=== PATIENT | female | born 1940 | race Caucasian/White ===

== ENCOUNTER 2021-06-03 20:56 | Inpatient (IN) | payer OTHER, MEDICAID, SELFPAY ==
[~2021-06-03] VITALS: Ht 157.5 cm; Wt 63.5 kg
[~2021-06-03 20:56] MED LIST: ACET-2619 GT; ATI.5 GT; BALS30OI TP; BISA-227 PO; BISA-246 RC; CHOL2400; CHOL2400 GT; COG1 GT; DEXT15LI36 PO; DIVA125E1 GT; FAMO-90 GT; FENO145T GT; FLEPED RC; FLONAS NS; FLOR250 GT; GABA300C GT; INSU100I7 SQ; INSU100S45 SUBQ; LEVO25SO GT; LISI-486 GT; MAGN400S60 GT; NYST1CRE8 TP; ONDA4TAB GT; PRON INH; ROB PO; [UNRECOGNIZED DRUG - CODE] GT
[2021-06-03 20:59] VITALS: BP 126/88
--- NOTE | 2021-06-03 20:59 | NUR ---
VIKKI VIA GURNEY TO BED 3
--- NOTE | 2021-06-03 20:59 | NUR ---
VIKKI FROM [facility] IN [place] VIA [place], PER EMS FACILITY DOCTOR WANTS A RECHECK ON SACRAL WOUND DUE TO SUSPECTED INFECTION. PT. GCS 8. VSS; PATIENT POSITIONED FOR COMFORT; HOB ELEVATED; BEDRAILS UP X2; BED DOWN. ER MD MADE AWARE OF PT STATUS. MED HX: ANEMIA, DEPRESSION, DYSPHAGIA, HTN, DM ALLERGIES: NKA
[2021-06-03] MEDS ORDERED: VANCOMYCIN 1,000 MG in DEXTROSE 5% 250 ML IV ONE (21:35)
--- NOTE | 2021-06-03 21:45 | NUR ---
COCO [place] SWAB COMPLETED AND HANDED TO EDUARDO FROM LAB
[2021-06-03] MEDS ORDERED: VANCOMYCIN 1,000 MG VIAL ONE (21:46)
--- NOTE | 2021-06-03 22:27 | NUR ---
LAB AT BEDSIDE
[2021-06-03] MEDS ORDERED: ASCO500T95 PO (22:38)
[2021-06-03] MEDS ORDERED: ZINC50TA76 PO (22:38)
[2021-06-03] MEDS ORDERED: CLON0.1T16 PO (22:38)
[2021-06-03] MEDS ORDERED: METO25TA PO (22:38)
[2021-06-03 22:46] LABS: BASOPHILS # (AUTO) 0.1 K/uL (0.00-0.22); BASOPHILS % (AUTO) 0.4 % (0.0-2.0); EOSINOPHILS # (AUTO) 0.1 K/uL (0-0.4); EOSINOPHILS % (AUTO) 0.6 % (0.0-4.0); HEMOGLOBIN 10.8 g/dL (12.0-16.0); LYMPHOCYTES # (AUTO) 2.4 K/uL (2.5-16.5); LYMPHOCYTES % (AUTO) 16.7 % (20.5-51.1); MEAN CORPUSCULAR HEMOGLOBIN 27 pg (27-31); MEAN CORPUSCULAR HGB CONC 33 g/dL (33-37); MEAN CORPUSCULAR VOLUME 82.1 fL (80-94); MONOCYTES # (AUTO) 1.8 K/uL (0.8-1.0); MONOCYTES % (AUTO) 12.1 % (1.7-9.3); NEUTROPHILS # (AUTO) 10.3 K/uL (1.8-7.7); NEUTROPHILS % (AUTO) 70.2 % (42.2-75.2); PLATELET COUNT (AUTO) 378 K/uL (140-450); RED BLOOD CELL COUNT(AUTO) 4.02 MIL/uL (4.20-5.40); RED CELL DISTRIBUTION WIDTH 14.6 % (11.6-13.7); WHITE BLOOD COUNT (AUTO) 14.6 K/uL (4.8-10.8)
[2021-06-03] MEDS ORDERED: SODIUM PHOSPHATE PEDIATRIC 67.5 ML ENEM RC PRN (23:10)
[2021-06-03] MEDS ORDERED: bisacodyL 5 MG TABEC PO PRN (23:10)
[2021-06-03] MEDS ORDERED: ACETAMINOPHEN 325 MG TAB GT PRN (23:10)
[2021-06-03] MEDS ORDERED: bisacodyL 10 MG SUPP RC PRN (23:10)
[2021-06-03] MEDS ORDERED: MAGNESIUM HYDROXIDE 2400 MG/30 ML UDC GT PRN (23:10)
[2021-06-03] MEDS ORDERED: LORazepam 0.5 MG TAB GT PRN (23:10)
[2021-06-03] MEDS ORDERED: ALBUTEROL 0.083% 2.5 MG/3 ML NEBU INH PRN (23:10)
[2021-06-03] MEDS ORDERED: ONDANSETRON 4 MG TAB GT SCH (23:10)
[2021-06-03] MEDS ORDERED: guaiFENesin 20 MG/ML UDC GT PRN (23:10)
[2021-06-03 23:12] LABS: ALBUMIN 2.5 g/dL (3.4-5.0); ANION GAP 9.8 (8-16); ASPARTATE AMINOTRANSFERASE 10 U/L (15-37); CARBON DIOXIDE 28.8 mmol/L (21-32); CHLORIDE 88 mmol/L (98-107); CREATININE 1.1 mg/dL (0.6-1.3); POTASSIUM 4.6 mmol/L (3.5-5.1); SODIUM SERUM 122 mmol/L (136-145); TOTAL BILIRUBIN 0.2 mg/dL (0.0-1.0)
[2021-06-03] MEDS ORDERED: ONDANSETRON 4 MG/2 ML VIAL IVP PRN (23:20)
[2021-06-03] MEDS: DEXT 5% /NACL 0.9% 1,000 ML IV SCH (23:20)
[2021-06-03 23:43] LABS: GLUCOSE 363 mg/dL (74-106); UREA NITROGEN, BLOOD 61 mg/dL (7-18)
--- NOTE | 2021-06-03 23:52 | NUR ---
Patient will be admitted to care of DR. GODOY. Admitted to MED SURG. PT. TAKEN TO room 110B VIA GURKIZZY, ACCOMPANIED BY EMT PAULINA. Belongings list completed.
--- NOTE | 2021-06-03 23:55 | NUR ---
RECEIVED PATIENT IN GURNEY, FLAT AFFECT, NONVERBAL, NO S/S OF DISTRESS.
--- NOTE | 2021-06-04 01:00 | NUR ---
PATIENT WAS ASLEEP
--- NOTE | 2021-06-04 02:00 | NUR ---
PATIENT WAS ASLEEP PATIENT WAS TURNED TO RIGHT SIDE.
[2021-06-04 04:00] VITALS: BP 140/79
--- NOTE | 2021-06-04 04:00 | NUR ---
PATIENT WAS ASLEEP, TURNED TO LEFT SIDE Addendum: 06/04/21 at 0724 by Chris Garrison RN RN 0 IV [id number] NS AT 100 ML/HOUR WAS STARTED INFUSING WELL, TOLERATED BY THE PATIENT
[2021-06-04] MEDS: CLONIDINE HYDROCHLORIDE 0.1 MG TAB PO SCH ×6 (05:00→18:21)
--- NOTE | 2021-06-04 05:00 | NUR ---
CLONIDINE 0.5 MG WAS GIVEN BY PEG TUBE. ANCEF IVPB 1 GRAM WAS ADMINISTERED TOLERATED WELL.
[2021-06-04 05:22] LABS: BASOPHILS # (AUTO) 0.1 K/uL (0.00-0.22); BASOPHILS % (AUTO) 0.6 % (0.0-2.0); EOSINOPHILS # (AUTO) 0.1 K/uL (0-0.4); EOSINOPHILS % (AUTO) 0.9 % (0.0-4.0); HEMATOCRIT 35.2 % (36-48); HEMOGLOBIN 11.8 g/dL (12.0-16.0); LYMPHOCYTES # (AUTO) 3.2 K/uL (2.5-16.5); LYMPHOCYTES % (AUTO) 23.7 % (20.5-51.1); MEAN CORPUSCULAR HEMOGLOBIN 27 pg (27-31); MEAN CORPUSCULAR HGB CONC 33 g/dL (33-37); MEAN CORPUSCULAR VOLUME 81.7 fL (80-94); MONOCYTES # (AUTO) 1.7 K/uL (0.8-1.0); MONOCYTES % (AUTO) 12.8 % (1.7-9.3); NEUTROPHILS # (AUTO) 8.4 K/uL (1.8-7.7); PLATELET COUNT (AUTO) 385 K/uL (140-450); RED BLOOD CELL COUNT(AUTO) 4.31 MIL/uL (4.20-5.40); RED CELL DISTRIBUTION WIDTH 14.5 % (11.6-13.7); WHITE BLOOD COUNT (AUTO) 13.6 K/uL (4.8-10.8)
--- NOTE | 2021-06-04 06:00 | NUR ---
PATIENT HAD 1 BM, CLEANED AND CHANGED LINENS AND CHALK
[2021-06-04 06:04] LABS: ANION GAP 12.6 (8-16); CARBON DIOXIDE 28.8 mmol/L (21-32); CHLORIDE 88 mmol/L (98-107); GLUCOSE 279 mg/dL (74-106); MAGNESIUM 2.1 mg/dL (1.8-2.4); PHOSPHORUS 3.4 mg/dL (2.5-4.9); POTASSIUM 4.4 mmol/L (3.5-5.1); SODIUM SERUM 125 mmol/L (136-145); UREA NITROGEN, BLOOD 56 mg/dL (7-18)
[2021-06-04] MEDS ORDERED: ceFAZolin 1,000 MG VIAL ONE (06:11)
[2021-06-04] MEDS ORDERED: INSULIN GLARGINE HUM REC ANLOG 12 UNIT SQ SCH (07:00)
[2021-06-04] MEDS ORDERED: ACETAMINOPHEN 650 MG/20.3 ML UDC GT PRN (07:10)
[2021-06-04] MEDS ORDERED: SODIUM PHOSPHATE 118 ML ENEM RC PRN (07:15)
--- NOTE | 2021-06-04 07:25 | NUR ---
REPORTS WERE GIVEN, PROCESS PLAN ENDORSED TO IN COMING RN PER KRISTINA NURSE CARDIOPULMONARY TECHNICIAN AND EEG TECH. OVERTIME NOT ALLOWED.
--- NOTE | 2021-06-04 08:57 | NUR ---
PATIENT HAS BEEN SCREENED AND CATEGORIZED HIGH NUTRITION RISK. PATIENT WILL BE SEEN WITHIN 1-2 DAYS OF ADMISSION. 06/04/21-06/05/21 [facility]NS CONSULT RECEIVED FOR TUBE FEEDING AND FNS REFERRAL RECEIVED FOR TUBE FEEDING, DYSPHAGIA AND UNHEALED WOUND. LINETTE BRANCH RD
[2021-06-04 09:00] VITALS: BP 157/80
[2021-06-04] MEDS ORDERED: NON-FORMULARY ITEM (Cholecalciferol (Vitamin D3) (Vitamin D3) 5,000 U) SCH (09:00)
[2021-06-04] MEDS ORDERED: NON-FORMULARY ITEM (Saccharomyces Boulardii* (Florastor*) 250 MG) GT SCH (09:00)
[2021-06-04] MEDS ORDERED: ZINC 220 MG PO SCH (09:00)
[2021-06-04] MEDS ORDERED: LEVOFLOXACIN GT SCH (09:00)
[2021-06-04] MEDS ORDERED: ASCORBIC ACID 500 MG TAB PO SCH (09:00)
--- NOTE | 2021-06-04 09:00 | NUR ---
RECEIVED REPORT FROM LAILA RN. 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 AWAITING DIETARY CONSULT FOR GT FEEDING RECOMMENDATIONS. VSS. NO DISTRESS NOTED UPON ASSESSMENT. WILL MONITOR PER PROTOCOL.
[2021-06-04] MEDS: DEXT 5% /NACL 0.9% 1,000 ML IV SCH ×2 (09:20→20:26)
[2021-06-04] MEDS: ZINC SULF 220 MG CAP GT SCH (11:30)
[2021-06-04] MEDS: FENOFIBRATE 48 MG TAB GT SCH (11:31)
[2021-06-04] MEDS: DIVALPROEX SPRINKLES 125 MG CAPDR GT SCH ×2 (11:31→21:22)
[2021-06-04] MEDS: lisinopriL 10 MG TAB GT SCH (11:32)
[2021-06-04] MEDS: GABAPENTIN 300 MG CAP GT SCH ×3 (11:32→18:20)
[2021-06-04] MEDS: METOPROLOL 25 MG TAB PO SCH ×2 (11:32→21:00)
[2021-06-04] MEDS: LACTOBACILLUS RHAMNOSUS GG 1 EACH CAP GT SCH (11:32)
[2021-06-04] MEDS: FAMOTIDINE 20 MG TAB GT SCH (11:33)
[2021-06-04] MEDS: CHOLECALCIFEROL 1,000 IU TAB GT SCH (11:33)
[2021-06-04] MEDS: NYSTATIN/TRIAMCINOLONE CRM 15 GM TUBE TP SCH ×2 (13:02→21:31)
[2021-06-04] MEDS: BENZTROPINE 1 MG TAB GT SCH (13:03)
--- NOTE | 2021-06-04 13:04 | NUR ---
DR. GODOY APPROVED RECOMMENDATIONS FOR FNS CONSULT TUBE FEEDING: GLUCERNA 1.2 @ 60 ML/HR. VITAMIN C 500 MG BID AND MULTIVITAMIN ONCE DAILY.
--- NOTE | 2021-06-04 14:04 | NUR ---
DC PLANNIN YRS OLD FEMALE PATIENT WAS ADMITTED FROM [facility] WITH A DX OF DECUBITUS ULCER STAGE 3 . PT HAS A HX OF CEREBRAL PALSY, DYSPHAGIA, HLD ANEMIA HTN, ARTHRITIS QUADRIPLEGIA AND HEARING LOSS. . RAPID COVID TEST NEGATIVE STARTED ON IVF, IV ABX ANCEF AND CONTINUED HOME MEDS. CONSULTED WITH ID AND SURGEON DR CHOUDHURY . DC PLAN TO GO BACK TO [facility] WHEN STABLE CM TO FOLLOW. Addendum: 06/04/21 at 1412 by Mallory Auguste RN DC PLANNING: CALLED [facility] SCAFFOLD SETTER [phone] SPOKE WITH LISETTE OLIVER STATED [facility] IS THE CONSERVATOR FOR THE PATIENT AND CAN GIVE WRITTEN CONSENT. IF PATIENT HAS TO GO TO [facility], YUNIER TONEY AND RONDA GUEVARA IS THE CHOICE. CM TO FOLLOW
--- NOTE | 2021-06-04 14:29 | NUR ---
06/04/21 RD INITIAL ASSESSMENT COMPLETED PLEASE REFER TO NUTRITION ASSESSMENT UNDER CARE ACTIVITY FOR ESTIMATED NUTRITIONAL NEEDS. 1. RECOMMEND GLUCERNA 1.2 @ 60 ML/HR -PROVIDES 1728 KCAL AND 86 GM OF PROTEIN. 2. RECOMMEND VITAMIN C 500 MG BID AND MULTIVITAMIN ONCE DAILY 3. RECOMMEND FREE WATER FLUSH OF [address] TO FOLLOW-UP 2-3 DAYS, HIGH RISK LINETTE BRANCH RD
[2021-06-04 17:00] VITALS: BP 131/57
[2021-06-04] MEDS ORDERED: VANCOMYCIN PER PHARMACY MC PRN (17:35)
[2021-06-04] MEDS ORDERED: ACETAMINOPHEN 325 MG TAB GT PRN (18:20)
[2021-06-04] MEDS ORDERED: LORazepam 2 MG/ML VIAL IVP PRN (18:20)
[2021-06-04] MEDS ORDERED: ONDANSETRON 4 MG/2 ML VIAL IVP PRN (18:20)
[2021-06-04] MEDS ORDERED: HYDROcodone/APAP 5/325 MG 1 TAB TAB GT PRN (18:20)
--- NOTE | 2021-06-04 19:30 | NUR ---
RECEIVED CARE AND REPORT FROM DAYSHIFT RN. PATIENT ALERT AND ORIENTED X0, UNABLE TO COMMUNICATE VERBALLY, HX OF CP, TRACKS WITH EYES OCCASIONALLY, NORMAL FOR BASELINE PER DAYSHIFT RN. PATIENT ON NASAL CANULA 2 LPM, OXYGEN SATURATION AT 95%, NO SIGNS OF SHORTNESS OF BREATH OR ANY DIFFICULTY BREATHING. PATIENT LAYING IN THE BED HOB 30 DEGREES, VS STABLE, NO OBVIOUS SIGNS OF DISTRESS OBSERVED. PATIENT HAS NO IV SITE AT START OF SHIFT. SKINS SHOW STAGE 3 WOUND ON THE SACRUM WITH EXCORIATION, PATIENT BEING OFFLOADED FROM PRESSURE POINTS WITH USE OF PILLOWS AND FREQUENT REPOSITIONING. PATIENT ASSISTED WITH REPOSITIONING Q2, ORIENTED TO ROOM ENVIRONMENT, NURSE CALL LIGHT LEFT WITHIN REACH OF PATIENT. BED LOCKED AND LOWERED INTO A POSITION OF SAFETY. WILL CONTINUE TO CLOSELY MONITOR AND FREQUENTLY ROUND THROUGHOUT THE SHIFT.
--- NOTE | 2021-06-04 19:48 | NUR ---
PT ON ROOM AIR WITH SPO2 OF 98%. PT IS IN NO RESPIRATORY DISTRESS AT THIS TIME. PRN TX NOT INDICATED AT THIS TIME. WILL CONTINUE TO MONITOR PT.
[2021-06-04 20:00] VITALS: BP 104/36
[2021-06-04] MEDS: PIPERACILLIN/TAZOBACTAM 3.375 GM in DEXTROSE 5% 50 ML IV SCH ×3 (21:00→22:01)
[2021-06-04] MEDS ORDERED: NON-FORMULARY ITEM (Fenofibrate Nanocrystallized* (Tricor*) 145 MG) GT SCH (21:00)
[2021-06-04] MEDS ORDERED: FLUTICASONE NASAL 50 MCG/ACTUATION 16 GM BTL NS SCH (21:00)
[2021-06-04] MEDS: ASCORBIC ACID 500 MG/5 ML ORASYR GT SCH (21:22)
--- NOTE | 2021-06-04 21:35 | NUR ---
SCHEDULED MEDICATIONS GIVEN ORDERED BY MD, TOLERATING WELL. NO OBVIOUS SIGNS OF DISTRESS OBSERVED WHILE AT BEDSIDE. WILL CONTINUE TO CLOSELY MONITOR AND FREQUENTLY ROUND.
--- NOTE | 2021-06-04 21:50 | NUR ---
SCHEDULED CLONIDINE AND METOPROLOL HELD FOR LOW BP 104/36 AND LOW HR 60 BPM, CONTRAINDICATED. OXYGEN SATURATION IS 95% ON NC 2 LPM, NO SIGNS OF DISTRESS OBSERVED. WILL CONTINUE TO CLOSELY MONITOR AND FREQUENTLY ROUND.
--- NOTE | 2021-06-04 22:01 | NUR ---
IV 24G STARTED IN THE LEFT WRIST, IV ACCESS STARTED. DRESSING DRY, INTACT AND FLUSHING WELL. NO SIGNS OF PAIN OR INFILTRATION AT THE SITE. SCHEDULED ANTIBIOTICS ORDERED BY MD GIVEN, TOLERATING WELL, NO OBVIOUS SIGNS OF DISTRESS OBSERVED WHILE AT BEDSIDE. WILL CONTINUE TO CLOSELY MONITOR AND FREQUENTLY ROUND.
--- NOTE | 2021-06-04 22:30 | NUR ---
[facility] CONTACTED REGARDING UNVERIFIED FLUTICASONE NASAL SPRAY MEDICATION DUE FOR 2100, NO MEDICATION AVAILABLE ON THE FLOOR, NOT ABLE TO BE GIVEN. TOLD BY PHARMACY ON THE PHONE THAT PHARMACY WILL PREPARE MEDICATION AND BRING THE MORNING, PHARMACY STATED THEY ARE UNABLE TO AT THIS TIME.
[2021-06-04] MEDS: VANCOMYCIN 1,000 MG in NACL 0.9% 250 ML IV SCH (23:06)
--- NOTE | 2021-06-04 23:06 | NUR ---
SCHEDULED MEDICATIONS GIVEN ORDERED BY MD, TOLERATING THERAPIES WELL. WILL CONTINUE TO CLOSELY MONITOR AND FREQUENTLY ROUND.
--- NOTE | 2021-06-05 01:22 | NUR ---
PATIENT RESTING IN A POSITION OF COMFORT, PATIENT FLACC 0. NO OBVIOUS SIGNS OF DISTRESS WHILE AT BEDSIDE, VS STABLE, AIRWAY OPEN, CLEAR AND MAINTAINABLE, HOB 25 DEGREES, OXYGEN SATURATION 95% NC 2 LPM, RR 18. ALL SAFETY MEASURES IN PLACE. WILL CONTINUE TO CLOSELY MONITOR AND FREQUENTLY ROUND.
--- NOTE | 2021-06-05 01:23 | NUR ---
ENDORSED CARE AND REPORT TO LI RN FOR CONTINUITY OF CARE, VS STABLE.
--- NOTE | 2021-06-05 01:23 | NUR ---
RECEIVED BEDSIDE ENDORSEMENT FROM LUIS EDUARDO PETIT, PATIENT IS ON 2L NC, O2 SAT WNL, NO DISTRESS, IVF INFUSING, GT IN PLACE, W/ ON GOING GT FEEDING. TOLERATED WELL. W/ DECUB ULCER ON SACRAL, NON VERBAL, SAFETY MEASURES IN PLACE, PLAN OF CARE DISCUSSED, WILL MONITOR, CALL LIGHT WITHIN REACH.
[2021-06-05 04:00] VITALS: BP 166/78
[2021-06-05] MEDS: DEXT 5% /NACL 0.9% 1,000 ML IV SCH ×2 (05:30→15:31)
[2021-06-05] MEDS: PIPERACILLIN/TAZOBACTAM 3.375 GM in DEXTROSE 5% 50 ML IV SCH ×3 (05:31→22:20)
[2021-06-05 05:34] LABS: BASOPHILS % (AUTO) 0.3 % (0.0-2.0); EOSINOPHILS # (AUTO) 0.1 K/uL (0-0.4); EOSINOPHILS % (AUTO) 0.8 % (0.0-4.0); HEMATOCRIT 33.9 % (36-48); HEMOGLOBIN 11.3 g/dL (12.0-16.0); LYMPHOCYTES # (AUTO) 2.2 K/uL (2.5-16.5); LYMPHOCYTES % (AUTO) 20.4 % (20.5-51.1); MEAN CORPUSCULAR HEMOGLOBIN 27 pg (27-31); MEAN CORPUSCULAR HGB CONC 33 g/dL (33-37); MEAN CORPUSCULAR VOLUME 82.2 fL (80-94); MONOCYTES # (AUTO) 1.4 K/uL (0.8-1.0); MONOCYTES % (AUTO) 13.2 % (1.7-9.3); NEUTROPHILS # (AUTO) 7.1 K/uL (1.8-7.7); NEUTROPHILS % (AUTO) 65.3 % (42.2-75.2); PLATELET COUNT (AUTO) 391 K/uL (140-450); RED BLOOD CELL COUNT(AUTO) 4.13 MIL/uL (4.20-5.40); WHITE BLOOD COUNT (AUTO) 10.9 K/uL (4.8-10.8)
[2021-06-05] MEDS: CLONIDINE HYDROCHLORIDE 0.1 MG TAB PO SCH (05:42)
--- NOTE | 2021-06-05 05:42 | NUR ---
CATAPRES TAB GIVEN FOR BP OF 166/78, HR 86. NO DISTRESS, FLACC 0. WILL RECHECK AFTER 1 HOUR, CALL LIGHT WITHIN REACH.
[2021-06-05 06:35] LABS: ALBUMIN 2.5 g/dL (3.4-5.0); ANION GAP 9.9 (8-16); ASPARTATE AMINOTRANSFERASE 10 U/L (15-37); CARBON DIOXIDE 29.5 mmol/L (21-32); CHLORIDE 95 mmol/L (98-107); CREATININE 1.1 mg/dL (0.6-1.3); GLUCOSE 359 mg/dL (74-106); PHOSPHORUS 3.4 mg/dL (2.5-4.9); POTASSIUM 4.4 mmol/L (3.5-5.1); SODIUM SERUM 130 mmol/L (136-145); TOTAL BILIRUBIN 0.2 mg/dL (0.0-1.0); UREA NITROGEN, BLOOD 36 mg/dL (7-18)
--- NOTE | 2021-06-05 06:42 | NUR ---
RECHECKED BP 152/80, HR 93. CALL LIGHT WITHIN REACH. NO DISTRESS.
--- NOTE | 2021-06-05 07:45 | NUR ---
PATIENT IS STABLE, NO DISTRESS, ALL NEEDS ATTENDED, KEPT CLEAN, DRY AND COMFORTABLE, BEDSIDE ENDORSEMENT GIVEN TO AM SHIFT RN.
--- NOTE | 2021-06-05 07:46 | NUR ---
MD TOLENTINO CALLED , REPORTED POSITIVE BLOOD CULTURES AND POSITIVE COCCI, PER PT IS ALREADY ON VANCO
--- NOTE | 2021-06-05 07:46 | NUR ---
DR. MANUEL CALLED BACK, AM NURSE NEIL INFORMED ABOUT BLOOD CULTURE RESULT, NNO.
--- NOTE | 2021-06-05 07:50 | NUR ---
REPORT RECEIVED FROM DUST BRUSH ASSEMBLER RN. PT RESTING IN BED EYES CLOSED EASY TO AROUSE. NO S/SX OF DISTRESS AT THIS TIME. ALL SAFETY MEASURES ARE IN PLACE
[2021-06-05] MEDS ORDERED: MULTIVITAMIN/MINERALS 15 ML UDBTL GT SCH (09:00)
[2021-06-05] MEDS ORDERED: MULTIVITAMIN 5 ML ORASYR GT SCH (09:00)
[2021-06-05] MEDS ORDERED: MULTIVITAMIN/MINERALS 1 TAB PO SCH (09:00)
--- NOTE | 2021-06-05 09:30 | NUR ---
LAB REPORTED LAB VALUE THIRD TIME TODAY OF POSITIVE BLOOD CULTURES. MD GODOY AND RANDA ARE AWARE ALREADY
--- NOTE | 2021-06-05 09:30 | NUR ---
PTS GTUBE ASSESSED. PT HAS 5 MLS RESIDUAL.
--- NOTE | 2021-06-05 09:50 | NUR ---
MEDICATIONS GIVEN PER MD ORDERS. PT EDUCATED REINFORCEMENT NEEDED. PT CLEANSED , SACRAL WOUND RE-DRESSED, AND REPOSITIONED
[2021-06-05] MEDS: DIVALPROEX SPRINKLES 125 MG CAPDR GT SCH ×2 (09:53→21:06)
[2021-06-05] MEDS: BENZTROPINE 1 MG TAB GT SCH (09:53)
[2021-06-05] MEDS: LACTOBACILLUS RHAMNOSUS GG 1 EACH CAP GT SCH (09:53)
[2021-06-05] MEDS: ZINC SULF 220 MG CAP GT SCH (09:54)
[2021-06-05] MEDS: FAMOTIDINE 20 MG TAB GT SCH (09:54)
[2021-06-05] MEDS: lisinopriL 10 MG TAB GT SCH (09:54)
[2021-06-05] MEDS: CHOLECALCIFEROL 1,000 IU TAB GT SCH (09:54)
[2021-06-05] MEDS: GABAPENTIN 300 MG CAP GT SCH ×3 (09:54→17:04)
[2021-06-05] MEDS: FENOFIBRATE 48 MG TAB GT SCH (09:55)
[2021-06-05] MEDS: ASCORBIC ACID 500 MG/5 ML ORASYR GT SCH ×2 (09:55→21:07)
[2021-06-05] MEDS: METOPROLOL 25 MG TAB PO SCH ×2 (09:55→21:07)
[2021-06-05] MEDS: NYSTATIN/TRIAMCINOLONE CRM 15 GM TUBE TP SCH ×2 (09:56→21:08)
[2021-06-05] MEDS: MULTIVITAMIN/MINERALS 15 ML UDBTL GT SCH (09:56)
[2021-06-05] MEDS: FLUTICASONE NASAL 50 MCG/ACTUATION 16 GM BTL NS SCH ×2 (09:56→21:00)
[2021-06-05] MEDS ORDERED: DEXTROSE 50% 50 ML SYR IVP PRN (10:50)
--- NOTE | 2021-06-05 11:06 | NUR ---
PT RESTING IN BED. NO S/SX OF DISTRESS AT THIS TIME
[2021-06-05] MEDS: BLOOD GLUCOSE MONITORING 1 DEV DEV FS SCH ×3 (11:30→20:53)
[2021-06-05] MEDS: FOAM DRESSING TP SCH (11:30)
--- NOTE | 2021-06-05 11:39 | NUR ---
BG ASSESSED, BG 289
[2021-06-05 12:00] VITALS: BP 167/97
--- NOTE | 2021-06-05 12:10 | NUR ---
PRN INSULIN GIVEN PER MD ORDER. DOUBLE RN VERIFICATION PERFORMED. PT EDUCATED . NEEDS REINFORCEMENT.
[2021-06-05] MEDS: INSULIN LISPRO SLIDING SCALE 100 UNITS/ML VIAL SUBQ PRN ×3 (12:48→21:19)
--- NOTE | 2021-06-05 15:10 | NUR ---
ASSISTED WOUND CARE NURSE WITH WOUND CARE. PT TOLERATED WELL. ALL SAFETY MEASURES ARE IN PLACE
--- NOTE | 2021-06-05 16:01 | NUR ---
REASON FOR EVALUATION: LOW PEDRO SCALE AND SACRAL COCCYX INFECTED WOUND SKIN ASSESSMENT DONE WITH THIS PT ADMITTED WITH INITIAL DX INFECTED SACRAL WOUND. PT.SKIN IS WARM AND DRY, BLE SEVERE CONTRACTURE, NO HAIR GROWTH, NO EDEMA. DORSAL PEDAL PULSES PRESENT AND NORMAL. CAPILLARY REFILLED <2 SEC. X 10 TOES. PLAN OF CARE DISCUSSED WITH PRIMARY RN. PER CHARGE NURSE PENDING SURGEON CONSULT FOR WOUND DEBRIDEMENT. INTEGUMENTARY: -LIPS AND ORAL MUCOSA DRY -GT VANESSA-STOMA SKIN DRY AND INTACT -UPPER ARMS MULTIPLE ECCHYMOSIS/MULTIPLE PURPLE DISCOLORATION POSSIBLE FROM BLOOD DRAW -INTERTRIGO UNDER BREAST FOLDS AND ABDOMINAL FOLD, SKIN RED AND INTACT. -INCONTINENT ASSOCIATE DERMATITIS (IAD) TO: B/L GROINS, INNER THIGH SKIN RED INTACT -PRESSURE ULCER INJURY UN-STAGEABLE, SACROCOCCYX 3X2X0.3CM, WOUND BED 100% BLACK/BROWN SOFT SLOUGH TISSUE, MOIST WITH MILD ODOR. VANESSA-WOUND SKIN MOIST SURROUNDING REDNESS INDICATED FURTHER DAMAGE. RECOMMENDATIONS: -PENDING SURGEON CONSULT -ORAL CARE BID -APPLY THIN LAYER OF Z GUARD TO R/L GROINS EXTENDED TO INNER THIGHS BID AND PRN IF SOILING - CLEANSE SACRALCOCCYX WITH WOUND CLEANSING SOLUTION AND APPLY THERAHONEY GEL COVER WITH DRY DRESSING QD AND PRN IF SOILING -APPLY NYSTATIN CR. TO BREAST FOLDS AND ABDOMINAL FOLDS BID AND LACY -APPLY HEEL PROTECTORS TO BOTH HEELS AT ALL TIMES -OFFLOAD BILATERAL HEELS BY PLACING PILLOWS UNDER CALVES UNLESS OTHERWISE CONTRAINDICATED -PRESSURE REDISTRIBUTION SURFACE THERAPY -TURN AND REPOSITION Q2H, OFFLOAD SACRALCOCCYX AND BUTTOCKS BY TURNING RIGHT AND LEFT -CONTINUE TO FOLLOW RD RECOMMENDATIONS ALL ABOVE RECOMMENDATIONS DISCUSSED WITH PRIMARY RN. PLEASE CONTACT WOUND CARE NURSE FOR ANY QUESTION AND CHANGE OF WOUND CONDITION
--- NOTE | 2021-06-05 16:28 | NUR ---
PT AMBULATING , PT TOLERATING WELL. DENIES DIZZINESS, N/V . NO S/SX OF DISTRESS . PT USING NON -SLIP SOCKS
--- NOTE | 2021-06-05 16:29 | NUR ---
WRONG PT , DISREGARD
--- NOTE | 2021-06-05 16:30 | NUR ---
BG 234 , PRN INSULIN GIVEN PER MD ORDER. DOUBLE VERIFICATION W 2ND RN. PT EDUCATED VERBALIZED UNDERSTANDING NO S/SX OF DISTRESS
--- NOTE | 2021-06-05 18:20 | NUR ---
PT MOVED TO WOUND CARE BED. PT TOLERATED WELL.
--- NOTE | 2021-06-05 19:25 | NUR ---
PT ENDORSED TO ARCH PAD CEMENTER RN FOR CONTINUITY OF CARE. PT INSTABLE CONDITION. ALL SAFETY MEASURES IN PLACE.
[2021-06-05] MEDS ORDERED: CLONIDINE HYDROCHLORIDE 0.1 MG TAB PO PRN ×2 (20:10→21:35)
--- NOTE | 2021-06-05 20:13 | NUR ---
NOTIFIED DR GODOY ABOUT PATIENT'S ELEVATED BP. NEW ORDERS RECEIVED
[2021-06-05 21:06] VITALS: BP 194/83
[2021-06-05] MEDS: hydrALAZINE 25 MG TAB PO PRN (21:08)
[2021-06-05] MEDS: HYDROcodone/APAP 5/325 MG 1 TAB TAB GT PRN (21:08)
[2021-06-05] MEDS: INSULIN LANTUS 100 UNITS/ML 10 ML VIAL SUBQ SCH (21:18)
--- NOTE | 2021-06-05 21:30 | NUR ---
PATIENT HAD BM. STOOL SOFT, BROWN AND MODERATE IN AMOUNT. PATIENT CLEANED AND REPOSITIONED FOR COMFORT
[2021-06-05 23:39] VITALS: BP 145/78
[2021-06-05] MEDS: VANCOMYCIN 1,000 MG in NACL 0.9% 250 ML IV SCH (23:40)
[2021-06-06] MEDS: Z-GUARD PASTE TP SCH ×2 (01:05→13:01)
--- NOTE | 2021-06-06 01:10 | NUR ---
PT ASLEEP IN BED. NO S/S OF DISTRESS NOTED
[2021-06-06] MEDS: DEXT 5% /NACL 0.9% 1,000 ML IV SCH ×3 (01:20→21:35)
[2021-06-06 05:14] VITALS: BP 142/49
[2021-06-06] MEDS: PIPERACILLIN/TAZOBACTAM 3.375 GM in DEXTROSE 5% 50 ML IV SCH ×3 (05:16→21:41)
[2021-06-06] MEDS: CLONIDINE HYDROCHLORIDE 0.1 MG TAB PO SCH ×7 (05:17→23:52)
[2021-06-06 05:44] LABS: ANION GAP 11.7 (8-16); CARBON DIOXIDE 28.1 mmol/L (21-32); CHLORIDE 98 mmol/L (98-107); CREATININE 1.1 mg/dL (0.6-1.3); GLUCOSE 288 mg/dL (74-106); POTASSIUM 4.8 mmol/L (3.5-5.1); SODIUM SERUM 133 mmol/L (136-145); UREA NITROGEN, BLOOD 24 mg/dL (7-18)
[2021-06-06 05:59] LABS: BASOPHILS # (AUTO) 0.1 K/uL (0.00-0.22); BASOPHILS % (AUTO) 0.5 % (0.0-2.0); EOSINOPHILS % (AUTO) 0.4 % (0.0-4.0); HEMATOCRIT 34.6 % (36-48); HEMOGLOBIN 11.4 g/dL (12.0-16.0); LYMPHOCYTES # (AUTO) 3.3 K/uL (2.5-16.5); LYMPHOCYTES % (AUTO) 25.9 % (20.5-51.1); MEAN CORPUSCULAR HEMOGLOBIN 27 pg (27-31); MEAN CORPUSCULAR HGB CONC 33 g/dL (33-37); MEAN CORPUSCULAR VOLUME 81.5 fL (80-94); MONOCYTES # (AUTO) 1.4 K/uL (0.8-1.0); MONOCYTES % (AUTO) 11.3 % (1.7-9.3); NEUTROPHILS # (AUTO) 7.8 K/uL (1.8-7.7); NEUTROPHILS % (AUTO) 61.9 % (42.2-75.2); PLATELET COUNT (AUTO) 366 K/uL (140-450); RED BLOOD CELL COUNT(AUTO) 4.25 MIL/uL (4.20-5.40); RED CELL DISTRIBUTION WIDTH 15.2 % (11.6-13.7); WHITE BLOOD COUNT (AUTO) 12.6 K/uL (4.8-10.8)
--- NOTE | 2021-06-06 06:11 | NUR ---
ORAL CARE DONE
[2021-06-06] MEDS: BLOOD GLUCOSE MONITORING 1 DEV DEV FS SCH ×4 (06:24→21:00)
[2021-06-06] MEDS: INSULIN LISPRO SLIDING SCALE 100 UNITS/ML VIAL SUBQ PRN ×4 (06:28→23:10)
--- NOTE | 2021-06-06 07:20 | NUR ---
RECEIVED BEDSIDE REPORT FROM MULTIMEDIA DESIGNER NURSE FOR CONTINUITY OF CARE. PT IS SLEEPING IN BED WITH VISIBLE CHEST RISE AND FALL. PT ON RA WITH NO DISTRESS. GTUBE FEEDING IN PLACE RUNNING AT 60 ML/HR. SKIN IS DRY AND WARM. SACRAL WOUND WITH DRESSING DRY AND INTACT. IV IS ON R FOREARM 22 GAUGE WITH FLUID RUNNING. PT IS STABLE. PLAN OF CARE BEEN DISCUSSED. WILL CONTINUE TO MONITOR.
--- NOTE | 2021-06-06 07:34 | NUR ---
PT REPORT GIVEN AT BEDSIDE. PATIENT ENDORSED IN STABLE CONDITION
[2021-06-06 08:00] VITALS: BP 170/81
--- NOTE | 2021-06-06 08:50 | NUR ---
06/06/21 RD FOLLOW UP COMPLETED PLEASE REFER TO NUTRITION ASSESSMENT UNDER CARE ACTIVITY FOR ESTIMATED NUTRITIONAL NEEDS. 1. CONTINUEGLUCERNA 1.2 @ 60 ML/HR -PROVIDES 1728 KCAL AND 86 GM OF PROTEIN AT GOAL RATE. 2. CONTINUE VITAMIN C 500 MG BID AND MULTIVITAMIN ONCE DAILY 3. RECOMMEND FREE WATER FLUSH OF [address] TO FOLLOW-UP 2-3 DAYS, HIGH RISK IRINA DEE RD
[2021-06-06] MEDS: METOPROLOL 25 MG TAB PO SCH ×2 (09:00→21:33)
[2021-06-06] MEDS: ZINC SULF 220 MG CAP GT SCH (09:00)
[2021-06-06] MEDS: ASCORBIC ACID 500 MG/5 ML ORASYR GT SCH ×2 (09:00→21:43)
[2021-06-06] MEDS: CHOLECALCIFEROL 1,000 IU TAB GT SCH (09:00)
[2021-06-06] MEDS: NYSTATIN/TRIAMCINOLONE CRM 15 GM TUBE TP SCH ×2 (09:00→21:43)
[2021-06-06] MEDS: FAMOTIDINE 20 MG TAB GT SCH (09:00)
[2021-06-06] MEDS: FLUTICASONE NASAL 50 MCG/ACTUATION 16 GM BTL NS SCH ×2 (09:00→21:42)
[2021-06-06] MEDS: DIVALPROEX SPRINKLES 125 MG CAPDR GT SCH ×2 (09:00→21:31)
[2021-06-06] MEDS: GABAPENTIN 300 MG CAP GT SCH ×3 (09:00→16:54)
[2021-06-06] MEDS: BENZTROPINE 1 MG TAB GT SCH (09:00)
[2021-06-06] MEDS: lisinopriL 10 MG TAB GT SCH (09:00)
[2021-06-06] MEDS: MULTIVITAMIN/MINERALS 15 ML UDBTL GT SCH (09:00)
[2021-06-06] MEDS: LACTOBACILLUS RHAMNOSUS GG 1 EACH CAP GT SCH (09:00)
[2021-06-06] MEDS: FENOFIBRATE 48 MG TAB GT SCH (09:00)
--- NOTE | 2021-06-06 09:30 | NUR ---
PT IS STABLE. ON RA WITH O2 SAT AT 88%. PT WAS PLACED ON 2L O2 NC. G TUBE RESIDUAL WAS 5 ML. PT TOLERATING FEEDING WELL. ORAL CARE WAS PROVIDED. ORAL SUCTIONING WAS ALSO PROVIDED. PT WAS CHANGED AND REPOSITIONED. PT HAD A MODERATE SIZE BM. BROWN IN COLOR AND SOFT IN CONSISTENCY. IV IS PATENT AND INTACT. WILL CONTINUE TO MONITOR.
--- NOTE | 2021-06-06 09:42 | NUR ---
RECEIVED CALL FROM DR. GODOY. HE STATED THAT THE PT WILL NOT BE DISCHARGED TODAY UNTIL THE CULTURES ARE RESULTED. WILL RELAY MESSAGE TO CHARGE NURSEHAL. Addendum: 06/06/21 at 1328 by Camryn Cortez RN RN ALSO ASKED FOR THE CODE STATUS OF THE PT. DR GODOY GAVE ME A TELEPHONE ORDER TO PLACE PT ON FULL CODE STATUS.
[2021-06-06] MEDS: FOAM DRESSING TP SCH (11:30)
--- NOTE | 2021-06-06 11:30 | NUR ---
PT WAS REPOSITIONED. NO DISTRESS NOTED. ON 2L O2 NC WITH O2 SAT AT 98%. BREATHING IS UNLABORED. DIAPER IS DRY AND IN PLACE. FLACC 0. WILL CONTINUE TO MONITOR.
--- NOTE | 2021-06-06 12:43 | NUR ---
PT'S BS READING WAS 204. HUMALOG INSULIN WAS GIVEN PER SLIDING SCALE, 4 UNITS. MEDICATION EDUCATION WAS PROVIDED BUT PT IS APHASIC AND CANNOT VERBALIZE UNDERSTANDING.
[2021-06-06] MEDS: hydrALAZINE 25 MG TAB PO PRN (12:57)
[2021-06-06] MEDS: THERAHONEY GEL 42.5 GM TP SCH (13:01)
--- NOTE | 2021-06-06 14:20 | NUR ---
PT IS SLEEPING. CHEST RISE AND FALL SYMMETRICAL. NO RESPIRATORY DISTRESS NOTED. G TUBE FEEDING INFUSING. G TUBE RESIDUAL IS LESS THAN 5 ML. IV IS PATENT AND INFUSING FLUIDS ORDERED. FALL PRECAUTIONS IN PLACE.
--- NOTE | 2021-06-06 16:58 | NUR ---
PT'S BS READING WAS 258. PT WAS GIVEN 6 UNITS HUMALOG INSULIN PER SLIDING SCALE. WILL MONITOR BS.
--- NOTE | 2021-06-06 17:13 | NUR ---
RIGHT FOREARM IV WAS INFILTRATED. IV WAS REMOVED AND BLEEDING WAS CONTROLLED. OTHER IV IN THE LEFT WRIST IS STILL INTACT. FLUSHING AND PATENT.
--- NOTE | 2021-06-06 19:25 | NUR ---
ENDORSED PT TO DAY SHIFT NURSE FOR CONTINUITY OF CARE. PT IS STABLE AT THIS TIME. PLAN OF CARE DISCUSSED.
[2021-06-06 20:00] VITALS: BP 150/70
[2021-06-06] MEDS: INSULIN LANTUS 100 UNITS/ML 10 ML VIAL SUBQ SCH (21:00)
[2021-06-06] MEDS: HYDROcodone/APAP 5/325 MG 1 TAB TAB GT PRN (21:34)
[2021-06-06] MEDS: VANCOMYCIN 1,000 MG in NACL 0.9% 250 ML IV SCH (23:19)
[2021-06-07] MEDS: DEXT 5% /NACL 0.9% 1,000 ML IV SCH (01:30)
[2021-06-07] MEDS: Z-GUARD PASTE TP SCH ×2 (01:38→13:28)
[2021-06-07 03:10] VITALS: BP 136/74
[2021-06-07] MEDS: HYDROcodone/APAP 5/325 MG 1 TAB TAB GT PRN ×2 (03:19→03:23)
--- NOTE | 2021-06-07 03:25 | NUR ---
pt seems uncomfotabl norco is given
[2021-06-07 05:02] VITALS: BP 145/78
[2021-06-07] MEDS: PIPERACILLIN/TAZOBACTAM 3.375 GM in DEXTROSE 5% 50 ML IV SCH ×3 (05:32→21:35)
--- NOTE | 2021-06-07 06:05 | NUR ---
PT SLEPT WELL AFTE GETTIN ATIVAN AND NORCO FO DISCOMFORT, VSS
[2021-06-07] MEDS: BLOOD GLUCOSE MONITORING 1 DEV DEV FS SCH ×4 (07:15→21:33)
[2021-06-07] MEDS: INSULIN LISPRO SLIDING SCALE 100 UNITS/ML VIAL SUBQ PRN ×4 (07:17→21:40)
--- NOTE | 2021-06-07 07:25 | NUR ---
RECEIVE REPORT FROM ORACLE E BUSINESS DEVELOPER NURSE FOR CONTINUITY OF CARE. PATIENT AWAKE SLEEPING IN BED. BREATHING IS EVEN AN UNLABORED. ALL SAFETY MEASURES IN PLACE. WILL CONTINUE TO MONITOR.
[2021-06-07 07:47] LABS: BASOPHILS % (AUTO) 0.3 % (0.0-2.0); EOSINOPHILS # (AUTO) 0.2 K/uL (0-0.4); EOSINOPHILS % (AUTO) 2.6 % (0.0-4.0); HEMATOCRIT 31.3 % (36-48); HEMOGLOBIN 10.4 g/dL (12.0-16.0); LYMPHOCYTES # (AUTO) 2.5 K/uL (2.5-16.5); LYMPHOCYTES % (AUTO) 25.4 % (20.5-51.1); MEAN CORPUSCULAR HEMOGLOBIN 27 pg (27-31); MEAN CORPUSCULAR HGB CONC 33 g/dL (33-37); MEAN CORPUSCULAR VOLUME 82.2 fL (80-94); MONOCYTES % (AUTO) 10.3 % (1.7-9.3); NEUTROPHILS # (AUTO) 5.9 K/uL (1.8-7.7); NEUTROPHILS % (AUTO) 61.4 % (42.2-75.2); PLATELET COUNT (AUTO) 390 K/uL (140-450); RED BLOOD CELL COUNT(AUTO) 3.81 MIL/uL (4.20-5.40); RED CELL DISTRIBUTION WIDTH 14.9 % (11.6-13.7); WHITE BLOOD COUNT (AUTO) 9.7 K/uL (4.8-10.8)
[2021-06-07 08:15] LABS: ANION GAP 18.3 (8-16); CARBON DIOXIDE 25.9 mmol/L (21-32); CHLORIDE 100 mmol/L (98-107); CREATININE 1.1 mg/dL (0.6-1.3); GLUCOSE 307 mg/dL (74-106); SODIUM SERUM 139 mmol/L (136-145); UREA NITROGEN, BLOOD 23 mg/dL (7-18)
[2021-06-07 08:16] LABS: POTASSIUM 5.2 mmol/L (3.5-5.1)
[2021-06-07] MEDS: MULTIVITAMIN/MINERALS 15 ML UDBTL GT SCH (08:39)
[2021-06-07] MEDS: CHOLECALCIFEROL 1,000 IU TAB GT SCH (08:39)
[2021-06-07] MEDS: GABAPENTIN 300 MG CAP GT SCH ×3 (08:39→17:39)
[2021-06-07] MEDS: LACTOBACILLUS RHAMNOSUS GG 1 EACH CAP GT SCH (08:39)
[2021-06-07] MEDS: FENOFIBRATE 48 MG TAB GT SCH (08:40)
[2021-06-07] MEDS: ASCORBIC ACID 500 MG/5 ML ORASYR GT SCH ×2 (08:41→21:34)
[2021-06-07] MEDS: ZINC SULF 220 MG CAP GT SCH (08:42)
[2021-06-07] MEDS: DIVALPROEX SPRINKLES 125 MG CAPDR GT SCH ×2 (08:42→21:34)
--- NOTE | 2021-06-07 08:42 | NUR ---
PATIENT SLEEPING. ROUTINE MEDICATION GIVEN VIA G-TUBE. ALL SAFETY MEASURES IN PLACE. WILL CONTINUE TO MONITOR.
[2021-06-07] MEDS: FAMOTIDINE 20 MG TAB GT SCH (08:43)
[2021-06-07] MEDS: BENZTROPINE 1 MG TAB GT SCH (08:43)
[2021-06-07] MEDS: lisinopriL 10 MG TAB GT SCH (08:45)
[2021-06-07] MEDS: METOPROLOL 25 MG TAB PO SCH ×2 (08:45→21:36)
[2021-06-07] MEDS: NYSTATIN/TRIAMCINOLONE CRM 15 GM TUBE TP SCH ×2 (09:00→21:36)
[2021-06-07] MEDS: FLUTICASONE NASAL 50 MCG/ACTUATION 16 GM BTL NS SCH ×2 (09:22→21:36)
--- NOTE | 2021-06-07 10:45 | NUR ---
PATIENT SLEEPING IN BED. BREATHING IS EVEN AND UNLABORED. APPLICATION TECHNICIAN AT BEDSIDE CHANGING PATIENT. ALL SAFETY MEASURES IN PLACE. WILL CONTINUE TO MONITOR.
[2021-06-07 12:00] VITALS: BP 133/70
[2021-06-07] MEDS: FOAM DRESSING TP SCH (12:07)
--- NOTE | 2021-06-07 12:46 | NUR ---
PATIENT SLEEPING IN BED. ALL SAFETY MEASURES IN PLACE. WILL CONTINUE TO MONITOR.
[2021-06-07] MEDS: THERAHONEY GEL 42.5 GM TP SCH (13:27)
--- NOTE | 2021-06-07 14:26 | NUR ---
PATIENTS IV PULLED OUT ACCIDENTLY. CATHETER REMAINS INTACT. WILL START NEW IV.
--- NOTE | 2021-06-07 16:49 | NUR ---
PATIENT SLEEPING IN BED. NO ACUTE DISTRESS NOTED. ALL SAFETY MEASURE IN PLACE.
[2021-06-07] MEDS: hydrALAZINE 25 MG TAB PO PRN (17:40)
--- NOTE | 2021-06-07 18:16 | NUR ---
PATIENT AWAKE. BREATHING EVEN AND UNLABORED. APPELLATE COURT JUDGE AT BEDSIDE CHANGING PATIENT. ALL SAFETY MEASURES IN PLACE. WILL CONTINUE TO MONITOR.
--- NOTE | 2021-06-07 19:30 | NUR ---
REPORT GIVEN TO NIGHT NURSE FOR CONTINUITY OF CARE. PATIENT STABLE. ALL SAFETY MEASURES IN PLACE.
[2021-06-07 20:00] VITALS: BP 144/62
--- NOTE | 2021-06-07 20:00 | NUR ---
RECEIVED PATIENT IN BED SLEEPING, NO S/S OF DISTRESS
--- NOTE | 2021-06-07 20:27 | NUR ---
PT SLEEPING COMFORTABLY ON 2LNC W/ NO DISTRESS NOTED SPO2 99% HR 82 f22 WILL CONTINUE TO MONITOR
--- NOTE | 2021-06-07 21:00 | NUR ---
ALL DUE MEDS WERE GIVEN, TOLERATED WELL BY THE PATIENT.
[2021-06-07] MEDS: CLONIDINE HYDROCHLORIDE 0.1 MG TAB PO SCH (21:30)
[2021-06-07] MEDS: INSULIN LANTUS 100 UNITS/ML 10 ML VIAL SUBQ SCH (21:37)
[2021-06-07 22:00] VITALS: BP 144/69
--- NOTE | 2021-06-07 22:40 | NUR ---
VOIDED FREELY VIA BED RINALDI, IVF INFUSING WELL, MONITORED CLOSELY. Addendum: 06/08/21 at 0041 by Delfino Aguillon RN CHARTED ON WRONG PT
[2021-06-07] MEDS: VANCOMYCIN 1,000 MG in NACL 0.9% 250 ML IV SCH (23:46)
--- NOTE | 2021-06-08 | NUR ---
RN MADE HIS ROUND, PATIENT WAS CALMLY ASLEEP.
[2021-06-08] MEDS: Z-GUARD PASTE TP SCH ×2 (00:24→13:44)
[2021-06-08 04:00] VITALS: BP 153/70
[2021-06-08] MEDS: PIPERACILLIN/TAZOBACTAM 3.375 GM in DEXTROSE 5% 50 ML IV SCH ×2 (04:43→13:53)
[2021-06-08 05:59] LABS: BASOPHILS % (AUTO) 0.5 % (0.0-2.0); EOSINOPHILS # (AUTO) 0.2 K/uL (0-0.4); EOSINOPHILS % (AUTO) 2.3 % (0.0-4.0); HEMATOCRIT 35.5 % (36-48); HEMOGLOBIN 11.4 g/dL (12.0-16.0); LYMPHOCYTES % (AUTO) 29.6 % (20.5-51.1); MEAN CORPUSCULAR HEMOGLOBIN 27 pg (27-31); MEAN CORPUSCULAR HGB CONC 32 g/dL (33-37); MEAN CORPUSCULAR VOLUME 83.5 fL (80-94); MONOCYTES # (AUTO) 0.9 K/uL (0.8-1.0); MONOCYTES % (AUTO) 9.2 % (1.7-9.3); NEUTROPHILS # (AUTO) 5.8 K/uL (1.8-7.7); NEUTROPHILS % (AUTO) 58.4 % (42.2-75.2); PLATELET COUNT (AUTO) 403 K/uL (140-450); RED BLOOD CELL COUNT(AUTO) 4.26 MIL/uL (4.20-5.40)
[2021-06-08] MEDS: BLOOD GLUCOSE MONITORING 1 DEV DEV FS SCH ×2 (06:03→11:30)
[2021-06-08] MEDS: INSULIN LISPRO SLIDING SCALE 100 UNITS/ML VIAL SUBQ PRN (06:04)
[2021-06-08 06:10] LABS: ALBUMIN 2.3 g/dL (3.4-5.0); ANION GAP 9.5 (8-16); ASPARTATE AMINOTRANSFERASE 10 U/L (15-37); CARBON DIOXIDE 28.4 mmol/L (21-32); CHLORIDE 102 mmol/L (98-107); GLUCOSE 251 mg/dL (74-106); MAGNESIUM 1.7 mg/dL (1.8-2.4); PHOSPHORUS 3.3 mg/dL (2.5-4.9); POTASSIUM 4.9 mmol/L (3.5-5.1); SODIUM SERUM 135 mmol/L (136-145); TOTAL BILIRUBIN 0.2 mg/dL (0.0-1.0); UREA NITROGEN, BLOOD 26 mg/dL (7-18)
[2021-06-08 08:00] VITALS: BP 150/84
--- NOTE | 2021-06-08 08:00 | NUR ---
RECEIVED PT AWAKE, NON VERBAL, CONFUSED. NO SOB NOTED. NO SIGNS OF PAIN AT THIS TIME. IV TO LT HAND PATENT AND INTACT. CHEST, DIMINISHED AIR ENTRY TO THE BASES. ABDOMEN SOFT,PEG SITE CLEAN AND DRY WITH ON GOING G-TUBE FEEDING, HOB ABOVE 30 DEGREES. BED ON LOW POSITION. WITH 3 SIDE RAILS UP. SUCTIONED AND REPOSITIONED PT. WILL CONTINUE TO MONITOR.
[2021-06-08] MEDS: MULTIVITAMIN/MINERALS 15 ML UDBTL GT SCH (10:00)
[2021-06-08] MEDS: DIVALPROEX SPRINKLES 125 MG CAPDR GT SCH (10:01)
[2021-06-08] MEDS: FAMOTIDINE 20 MG TAB GT SCH (10:01)
[2021-06-08] MEDS: BENZTROPINE 1 MG TAB GT SCH (10:02)
[2021-06-08] MEDS: GABAPENTIN 300 MG CAP GT SCH ×2 (10:02→13:52)
[2021-06-08] MEDS: CHOLECALCIFEROL 1,000 IU TAB GT SCH (10:02)
[2021-06-08] MEDS: FENOFIBRATE 48 MG TAB GT SCH (10:02)
[2021-06-08] MEDS: LACTOBACILLUS RHAMNOSUS GG 1 EACH CAP GT SCH (10:03)
[2021-06-08] MEDS: ZINC SULF 220 MG CAP GT SCH (10:07)
[2021-06-08] MEDS: METOPROLOL 25 MG TAB PO SCH (10:07)
[2021-06-08] MEDS: ASCORBIC ACID 500 MG/5 ML ORASYR GT SCH (10:07)
[2021-06-08] MEDS: FLUTICASONE NASAL 50 MCG/ACTUATION 16 GM BTL NS SCH (10:11)
[2021-06-08] MEDS: NYSTATIN/TRIAMCINOLONE CRM 15 GM TUBE TP SCH (10:41)
[2021-06-08] MEDS: FOAM DRESSING TP SCH (11:30)
--- NOTE | 2021-06-08 11:35 | NUR ---
DC PLANNING: ORDERS RECEIVED FOR SNF PLACEMENT, SPOKE WITH ADOLFO FROM [facility], ROOM ASSIGNED IS 49A. [facility] WILL SET UP TRANSPORT WHEN PATIENT HAS FINAL DC ORDER. ALSO SPOKE WITH DR. GODOY, STATES HE WANTS MD'S FINAL RECOMMENDATIONS BASED ON BLOOD CULTURES RESULTS BEFORE HE DISCHARGES PATIENTS. WILL CONTINUE TO FOLLOW FOR NEEDS. Addendum: 06/08/21 at 1640 by Mallory Auguste RN DC PLANNING: SPOKE WITH DR GODOY NEW ORDER PT CAN GO TO [facility] FOR WOUND CARE , NO ABX, CAN GO TO ROOM 49A , ADOLFO AT [facility] ARRANGED TRANSPORT WITH [facility] TRANSP[facility] TOE STAPLER TIME BETWEEN 6-7 PM. NOTIFIED ISAK CHARGE NURSE. NOTIFIED [facility] [employer] [facility] [employer] LISETTE OLIVER.
--- NOTE | 2021-06-08 12:00 | NUR ---
PT TOLERATING G-TUBE FEEDING WELL. RESIDUAL 15 MLS.
[2021-06-08] MEDS: THERAHONEY GEL 42.5 GM TP SCH (13:43)
[2021-06-08 13:53] VITALS: BP 140/80
[2021-06-08] MEDS: CLONIDINE HYDROCHLORIDE 0.1 MG TAB PO SCH (13:53)
--- NOTE | 2021-06-08 18:00 | NUR ---
REPORT GIVEN TO TEJAL HOUSE SUP AT [facility].
--- NOTE | 2021-06-08 18:35 | NUR ---
PT WHEELED OUT BY [facility]SP[facility] IN STABLE CONDITION. PER MALAIKA FROM [facility], PT DOES NOT NOT FAMILY. PT IS D/C TO [facility] FOR WOUND CARE.
== END 2021-06-08 19:02 | DRG 871 ==
LOC: MED 20:56 → MTU 22:26
PROVIDERS: ADMIT Preventive Medicine Preventive Medicine/Occupational Environmental Medicine; ATTEND Preventive Medicine Preventive Medicine/Occupational Environmental Medicine
DX: A41.9 Sepsis, unspecified organism (principal); L89.93 Pressure ulcer of unspecified site, stage 3; E43 Unspecified severe protein-calorie malnutrition; G82.50 Quadriplegia, unspecified; J96.00 Acute respiratory failure, unspecified whether with hypoxia or hypercapnia; R78.81 Bacteremia; E87.1 Hypo-osmolality and hyponatremia; L89.159 Pressure ulcer of sacral region, unspecified stage; D64.9 Anemia, unspecified; E11.65 Type 2 diabetes mellitus with hyperglycemia; E78.00 Pure hypercholesterolemia, unspecified; E78.5 Hyperlipidemia, unspecified; E83.41 Hypermagnesemia; E87.5 Hyperkalemia; E88.09 Other disorders of plasma-protein metabolism, not elsewhere classified; F03.90 Unspecified dementia, unspecified severity, without behavioral disturbance, psychotic disturbance, mood disturbance, and anxiety; I10 Essential (primary) hypertension; M19.90 Unspecified osteoarthritis, unspecified site; D72.829 Elevated white blood cell count, unspecified; Z20.822 Contact with and (suspected) exposure to COVID-19; R79.89 Other specified abnormal findings of blood chemistry; Z68.25 Body mass index [BMI] 25.0-25.9, adult
CPT/HCPCS: 36415; 71045; 80048; 80053; 80202; 82948; 83605; 83735; 84100; 85025; 85651; 86140; 87040; 87081; 87186; 94640; 96365; 96366; 99285; J0690; J1815; J2060; J2543; J3370; J7030; J7060; J7613

== ENCOUNTER 2021-07-22 10:07 | Inpatient (IN) | payer OTHER, MEDICAID, SELFPAY ==
[~2021-07-22] VITALS: Ht 167.6 cm; Wt 67.6 kg
[~2021-07-22 10:07] MED LIST changes: +ASCO500T95 PO; +CLON0.1T16 PO; +METO25TA PO; +ZINC50TA76 PO
[2021-07-22 10:10] VITALS: BP 160/81
--- NOTE | 2021-07-22 10:10 | NUR ---
PATIENT TAKEN TO BED 10 VIA GURNEY BY MEDICS.
--- NOTE | 2021-07-22 10:11 | NUR ---
BIBA FROM [facility] C/O UNCONTROLLED BLOOD SUGAR >500 LAST NIGHT, WOUND INFECTION TO COCCYX. PATIENT PRESENTS WITH 2L O2 NC, GI TUBE, DOMINGUEZ CATHETER, IV L HAND (UNKNOWN GAUGE), BB INCONTINENT W/DIAPER. PATIENT IS QUADRIPLEGIC. +COUGH/PRODUCTIVE, LUNG SOUNDS CLEAR THROUGHOUT. +DIARRHEA NOTED UPON ARRIVAL. STAGE 4 DECUB ULCER TO COCCYX. PATIENT HAS GCS 8, NON VERBAL, RESPONDS TO VOICE (NORMAL TO PATIENT). PATIENT PLACED IN GOWN AND ON MONITOR. BLOOD SUGAR ON ADM: 326 NKDA PMH: DM, HTN, HYPERLIPIDEMIA, DEMENTIA, CKD STAGE 3, GERD, ENCEPHALOPATHY, PRESSURE ULCER STAGE 4, CEREBRAL PALSY, DYSPHAGIA- GT DEPENDENT. DYSPEPSIA
--- NOTE | 2021-07-22 10:13 | NUR ---
Paula perry in [facility] - 07/22/21 at 1019 by ARIANNA Patient transferred from [facility] bustos onto bed 10 by sheet move
--- NOTE | 2021-07-22 10:37 | NUR ---
MD KNOWLES AT BEDSIDE EVALUATING PATIENT
[2021-07-22] MEDS ORDERED: NACL 0.9% 500 ML IV SCH (10:40)
--- NOTE | 2021-07-22 11:31 | NUR ---
RAD AT BEDSIDE
--- NOTE | 2021-07-22 11:40 | NUR ---
# 16 FR Mustafa catheter with 10 ml utilizing sterile technique. Immediate return of 50 ml YELLOW/SENTIMENT urine noted. Bedside drainage bag placed below level of bladder. Urine sample collected and sent to lab. Pt tolerated procedure WELL.
--- NOTE | 2021-07-22 11:51 | NUR ---
UA COLLECTED FROM DOMINGUEZ 50CC YELLOW WITH SENTIMENTS, HANDED TO CPT SHANEKA.
--- NOTE | 2021-07-22 11:57 | NUR ---
DIAPER CHANGED, DIARRHEA NOTED, PATIENT CLEANED AND DRIED, PT REPOSITIONED.
--- NOTE | 2021-07-22 12:12 | NUR ---
VAN DRIVER AT [facility].
--- NOTE | 2021-07-22 12:12 | NUR ---
COCO AND CARLOS SAMPLES COLLECTED AND HANDED TO CAMERA REPAIR TECHNICIAN.
[2021-07-22 12:53] LABS: BASOPHILS % (AUTO) 0.2 % (0.0-2.0); EOSINOPHILS % (AUTO) 0.1 % (0.0-4.0); HEMATOCRIT 34.2 % (36-48); HEMOGLOBIN 10.6 g/dL (12.0-16.0); LYMPHOCYTES # (AUTO) 2.2 K/uL (2.5-16.5); LYMPHOCYTES % (AUTO) 18.5 % (20.5-51.1); MEAN CORPUSCULAR HEMOGLOBIN 25 pg (27-31); MEAN CORPUSCULAR HGB CONC 31 g/dL (33-37); MEAN CORPUSCULAR VOLUME 81.3 fL (80-94); MONOCYTES # (AUTO) 1.4 K/uL (0.8-1.0); MONOCYTES % (AUTO) 11.9 % (1.7-9.3); NEUTROPHILS # (AUTO) 8.2 K/uL (1.8-7.7); NEUTROPHILS % (AUTO) 69.3 % (42.2-75.2); PLATELET COUNT (AUTO) 347 K/uL (140-450); RED CELL DISTRIBUTION WIDTH 15.5 % (11.6-13.7); WHITE BLOOD COUNT (AUTO) 11.8 K/uL (4.8-10.8)
[2021-07-22 12:58] LABS: PROTHROMBIN TIME 10.3 secs (10.8-13.4)
[2021-07-22 13:00] LABS: ALBUMIN 1.9 g/dL (3.4-5.0); ANION GAP 6.3 (8-16); ASPARTATE AMINOTRANSFERASE 24 U/L (15-37); CARBON DIOXIDE 37.4 mmol/L (21-32); CHLORIDE 116 mmol/L (98-107); CREATININE 1.4 mg/dL (0.6-1.3); GLUCOSE 247 mg/dL (74-106); POTASSIUM 3.7 mmol/L (3.5-5.1); TOTAL BILIRUBIN 0.1 mg/dL (0.0-1.0)
[2021-07-22 13:04] LABS: SODIUM SERUM 156 mmol/L (136-145); UREA NITROGEN, BLOOD 63 mg/dL (7-18)
[2021-07-22] MEDS ORDERED: NACL 0.9% 1,000 ML IV ONE (13:30)
--- NOTE | 2021-07-22 14:08 | NUR ---
PATIENT OBSERVED IN BED RESTING AT THIS TIME, BOLUS RUNNING.
--- NOTE | 2021-07-22 17:17 | NUR ---
PATIENT REPOSITIONED IN BED, DIAPER CHANGED, DIARRHEA EPISODE X3 THIS SHIFT.
--- NOTE | 2021-07-22 18:32 | NUR ---
MD LECHUGA AT BEDSIDE EVALUATING PATIENT.
[2021-07-22] MEDS ORDERED: MAGNESIUM HYDROXIDE 2400 MG/30 ML UDC GT PRN (18:35)
[2021-07-22] MEDS ORDERED: ONDANSETRON 4 MG TAB GT SCH (18:35)
[2021-07-22] MEDS ORDERED: bisacodyL 10 MG SUPP RC PRN (18:35)
[2021-07-22] MEDS ORDERED: ALBUTEROL 0.083% 2.5 MG/3 ML NEBU INH PRN (18:35)
[2021-07-22] MEDS ORDERED: ONDANSETRON 4 MG/2 ML VIAL IVP PRN (18:40)
[2021-07-22] MEDS ORDERED: DEXT 5% /NACL 0.9% 1,000 ML IV SCH (18:40)
[2021-07-22] MEDS ORDERED: DEXTROSE 50% 50 ML SYR IVP PRN (18:40)
[2021-07-22] MEDS ORDERED: ACETAMINOPHEN 650 MG/20.3 ML UDC GT PRN (18:45)
--- NOTE | 2021-07-22 19:21 | NUR ---
REPORT AND TRANSFER OF CARE GIVEN TO LUIS EDUARDO CHAMBERLAIN.
--- NOTE | 2021-07-22 19:24 | NUR ---
pt is awake. vss. pt in stable condition. bs retaken: 126. all needs met at this time. bed locked in lowest position, side rails x2.
[2021-07-22 20:50] LABS: CREATINE KINASE MB 0.9 ng/mL (0-3.6)
[2021-07-22] MEDS ORDERED: NON-FORMULARY ITEM (Saccharomyces Boulardii* (Florastor*) 250 MG) GT SCH (21:00)
[2021-07-22] MEDS ORDERED: NYSTATIN/TRIAMCINOLONE CRM 15 GM TUBE TP SCH (21:00)
[2021-07-22] MEDS ORDERED: NON-FORMULARY ITEM (Fenofibrate Nanocrystallized* (Tricor*) 145 MG) GT SCH (21:00)
--- NOTE | 2021-07-22 21:00 | NUR ---
pt is resting, equal rise and fall of chest wall. vss, pt in stable condition. all needs met at this time. bed locked in lowest position, side rails x2.
[2021-07-22] MEDS ORDERED: CRUSHER, PILL MC ONE (22:05)
[2021-07-22] MEDS: DIVALPROEX SPRINKLES 125 MG CAPDR GT SCH (22:19)
[2021-07-22] MEDS: LACTOBACILLUS RHAMNOSUS GG 1 EACH CAP GT SCH (22:19)
[2021-07-22] MEDS: METOPROLOL 25 MG TAB GT SCH (22:20)
[2021-07-22] MEDS: ASCORBIC ACID 500 MG TAB GT SCH (22:20)
[2021-07-22] MEDS: CLONIDINE HYDROCHLORIDE 0.1 MG TAB PO SCH (22:21)
--- NOTE | 2021-07-22 22:30 | NUR ---
report given to chip lezama [id number]
--- NOTE | 2021-07-22 22:40 | NUR ---
Patient will be admitted to care of . Admited to TELE. Will go to room 123B. Belongings list completed. Report to LUIS EDUARDO CALDERON.
--- NOTE | 2021-07-22 22:50 | NUR ---
PATIENT ARRIVED TO THE FLOOR VIA GURNEY. PT IS APHASIC. HX CEREBRAL PALSY AND QUADRIPLEGIA. RESPIRATIONS ARE EQUAL AND UNLABORED ON 2L NC SAT WELL. LUNG SOUNDS ARE CLEAR. IV ON L WYMAN 24G SL AT THIS TIME. SKIN IS WARM AND DRY PT WITH COCCYX ULCER DRESSING APPEARS SOILED WILL CHANGE. DX SEPSIS. G TUBE IN PLACE ORDER FOR NPO. PCR PENDING AND PER REPORT PT HAD DIARRHEA THIS AM NONE THIS AFTERNOON ORDER TO COLLECT C-DIFF. ORIENTED PT TO ROOM, STAFF, CALL LIGHT UNABLE TO COMPREHEND. MRSA SWAB OBTAINED. SAFETY MEASURES ARE IN PLACE. WILL CONTINUE TO MONITOR.
[2021-07-22 23:00] VITALS: BP 104/36
--- NOTE | 2021-07-22 23:19 | NUR ---
ARTURO ZAYAS REGARDING MAINTENANCE FLUID AND D5NS AT 100ML/H. NA LVL HIGH, NEW ORDER TO CHANGE TO D5 1/2 NS AT 100ML/H.
[2021-07-22] MEDS ORDERED: DEXT 5% / NACL 0.45% 1,000 ML IV SCH (23:20)
[2021-07-22] MEDS: BLOOD GLUCOSE MONITORING 1 DEV DEV FS SCH (23:36)
[2021-07-22] MEDS: INSULIN LISPRO SLIDING SCALE 100 UNITS/ML VIAL SUBQ PRN (23:37)
--- NOTE | 2021-07-22 23:37 | NUR ---
PATIENT BS 206 CURRENTLY PT IS NPO ON D5 1.2NS AT 100ML/H. WILL HOLD COVERAGE AT THIS TIME. WILL RECHECK BS AGAIN AT 0600
--- NOTE | 2021-07-22 23:51 | NUR ---
RECEIVED CALL FROM KALEB ZAYAS. NEW ORDER FOR UA/URINE CX THERE IS A STANDING ORDER FROM ER WILL COLLECT AND SENT TO LAB.
--- NOTE | 2021-07-23 00:30 | NUR ---
UA COLLECTED AND SENT TO LAB.
--- NOTE | 2021-07-23 02:00 | NUR ---
ROUNDS MADE. PT APPEARS TO BE ASLEEP. CHEST RISE AND FALL NOTED. SAFETY MEASURERS ARE IN PLACE.
[2021-07-23 04:00] VITALS: BP 121/61
--- NOTE | 2021-07-23 04:00 | NUR ---
VITAL SIGNS ARE WITHIN NORMAL LIMITS. SAFETY MEASURES ARE IN PLACE.
[2021-07-23] MEDS ORDERED: PIPERACILLIN/TAZOBACTAM 3.375 GM VIAL IV ONE (05:00)
[2021-07-23] MEDS: CLONIDINE HYDROCHLORIDE 0.1 MG TAB PO SCH (05:00)
--- NOTE | 2021-07-23 05:09 | NUR ---
HELD CATAPRES BP 121/61 70 BPM WILL CONTINUE TO MONITOR.
[2021-07-23] MEDS: PIPERACILLIN/TAZOBACTAM 3.375 GM in DEXTROSE 5% 50 ML IV SCH ×3 (05:16→21:00)
[2021-07-23] MEDS: BLOOD GLUCOSE MONITORING 1 DEV DEV FS SCH ×3 (05:52→18:31)
[2021-07-23] MEDS: INSULIN LANTUS 100 UNITS/ML 10 ML VIAL SUBQ SCH (05:54)
[2021-07-23 06:41] LABS: BASOPHILS % (AUTO) 0.5 % (0.0-2.0); EOSINOPHILS % (AUTO) 0.2 % (0.0-4.0); HEMATOCRIT 30.9 % (36-48); HEMOGLOBIN 9.7 g/dL (12.0-16.0); LYMPHOCYTES # (AUTO) 2.5 K/uL (2.5-16.5); LYMPHOCYTES % (AUTO) 26.3 % (20.5-51.1); MEAN CORPUSCULAR HEMOGLOBIN 26 pg (27-31); MEAN CORPUSCULAR HGB CONC 31 g/dL (33-37); MEAN CORPUSCULAR VOLUME 82.1 fL (80-94); MONOCYTES # (AUTO) 0.8 K/uL (0.8-1.0); MONOCYTES % (AUTO) 8.9 % (1.7-9.3); NEUTROPHILS % (AUTO) 64.1 % (42.2-75.2); PLATELET COUNT (AUTO) 272 K/uL (140-450); RED BLOOD CELL COUNT(AUTO) 3.77 MIL/uL (4.20-5.40); RED CELL DISTRIBUTION WIDTH 15.3 % (11.6-13.7); WHITE BLOOD COUNT (AUTO) 9.4 K/uL (4.8-10.8)
[2021-07-23 07:12] LABS: MAGNESIUM 2.5 mg/dL (1.8-2.4); PHOSPHORUS 3.3 mg/dL (2.5-4.9)
[2021-07-23 07:21] LABS: ANION GAP 9.5 (8-16); CARBON DIOXIDE 32.4 mmol/L (21-32); CHLORIDE 118 mmol/L (98-107); GLUCOSE 336 mg/dL (74-106); POTASSIUM 3.9 mmol/L (3.5-5.1); UREA NITROGEN, BLOOD 47 mg/dL (7-18)
--- NOTE | 2021-07-23 07:22 | NUR ---
GAVE BEDSIDE REPORT TO DAY RN. PT ENDORSED IN STABLE CONDITION.
[2021-07-23 08:03] LABS: SODIUM SERUM 156 mmol/L (136-145)
[2021-07-23] MEDS: NYSTATIN/TRIAMCINOLONE CRM 15 GM TUBE TP SCH ×2 (09:00→21:00)
[2021-07-23] MEDS: ASCORBIC ACID 500 MG TAB GT SCH ×2 (09:00→21:00)
[2021-07-23] MEDS ORDERED: LEVOFLOXACIN GT SCH (09:00)
[2021-07-23] MEDS: LACTOBACILLUS RHAMNOSUS GG 1 EACH CAP GT SCH ×2 (09:00→21:00)
[2021-07-23] MEDS: CHOLECALCIFEROL 1,000 IU TAB GT SCH (09:00)
[2021-07-23] MEDS: BENZTROPINE 1 MG TAB GT SCH (09:00)
[2021-07-23] MEDS: GABAPENTIN 300 MG CAP GT SCH ×3 (09:00→17:00)
[2021-07-23] MEDS: lisinopriL 10 MG TAB GT SCH (09:00)
[2021-07-23] MEDS: ZINC SULF 220 MG CAP PO SCH (09:00)
[2021-07-23] MEDS: FAMOTIDINE 20 MG TAB GT SCH (09:00)
[2021-07-23] MEDS ORDERED: ZINC 220 MG PO SCH (09:00)
[2021-07-23] MEDS: METOPROLOL 25 MG TAB GT SCH ×2 (09:00→21:00)
[2021-07-23] MEDS: DIVALPROEX SPRINKLES 125 MG CAPDR GT SCH ×2 (09:00→21:00)
--- NOTE | 2021-07-23 09:30 | NUR ---
PATIENT HAS BEEN SCREENED AND CATEGORIZED HIGH NUTRITION RISK. PATIENT WILL BE SEEN WITHIN 1-2 DAYS OF ADMISSION. 07/23/21-07/24/[address]
[2021-07-23 09:57] LABS: BILIRUBIN,URINE NEGATIVE (NEGATIVE); BLOOD, URINE 1+ (NEGATIVE); COLOR,URINE YELLOW (YELLOW); LEUKOCYTE ESTERASE ,URINE 2+ (NEGATIVE); NITRITE, URINE NEGATIVE (NEGATIVE); PH,URINE 5.5 (5.0-9.0); UGLUCOSE NEGATIVE (NEGATIVE)
[2021-07-23 10:00] LABS: APPEARANCE,URINE SLIGHTLY HAZY (CLEAR)
[2021-07-23 10:12] LABS: RBC,URINE 0-5 /HPF (0-5)
[2021-07-23 10:13] LABS: WBC,URINE 20-60 /HPF (0-5)
[2021-07-23] MEDS ORDERED: SODIUM PHOSPHATE 118 ML ENEM RC PRN (11:15)
[2021-07-23] MEDS: DEXTROSE 5% 1,000 ML IV SCH ×2 (11:25)
[2021-07-23] MEDS: NACL 0.9% 1,000 ML IV SCH (11:47)
--- NOTE | 2021-07-23 14:48 | NUR ---
RECEIVED TORB FOR TUBE FEEDING FROM DR. GODOY. RN WAS NOTIFIED.
--- NOTE | 2021-07-23 15:02 | NUR ---
07/23/21 RD INITIAL ASSESSMENT COMPLETED PLEASE REFER TO NUTRITION ASSESSMENT UNDER CARE ACTIVITY FOR ESTIMATED NUTRITIONAL NEEDS. 1. RECOMMEND GLUCERNA 1.2 @ 60 ML/HR. START AT 30 ML/HR ADVANCE TO 60 AFTER 4 HOURS -THIS WILL PROVIDE 1728 KCAL/DAY AND 86 GM OF PROTEIN/DAY. 2. RECOMMEND FREE WATER FLUSH OF 140 ML Q6H 3. RECOMMEND KRISTEL BID TO PROMOTE WOUND HEALING 4. RD TO FOLLOW-UP 2-3 DAYS, HIGH RISK LINETTE BRANCH RD
[2021-07-23] MEDS: INSULIN LISPRO SLIDING SCALE 100 UNITS/ML VIAL SUBQ PRN (15:32)
[2021-07-23 20:11] LABS: CREATINE KINASE MB 1.1 ng/mL (0-3.6)
[2021-07-23] MEDS: FENOFIBRATE 48 MG TAB PO SCH (21:00)
[2021-07-23 21:11] VITALS: BP 150/77
[2021-07-23 21:12] VITALS: BP 149/66
[2021-07-24] VITALS: BP_SYST 122; BP_SYST 129; BP_DIAS 68; BP_DIAS 74
[2021-07-24] MEDS: BLOOD GLUCOSE MONITORING 1 DEV DEV FS SCH ×3 (00:34→12:00)
[2021-07-24] MEDS: INSULIN LISPRO SLIDING SCALE 100 UNITS/ML VIAL SUBQ PRN ×4 (00:37→17:07)
--- NOTE | 2021-07-24 03:01 | NUR ---
PATIENT HAS 02 ON 2 LITER N/C SAT 94%. LUNGS DIMINISH HAS COUGH SINUS ON MONITOR. TEMP 97%.ABDOMEN SOFT HAS GT FEEDING 30 CC HOUR. FLUSH 0000 100CC WATER EVERY SIX HOURS. HAS IVF D5W 70 HOUR. F/C DRAINING ARIELA URINE. BLOOD SUGAR 0000 166 COVERED WITH 2 UNITS OF HUMALOG S.Q. NO DISTRESS NOTED.
[2021-07-24 04:00] VITALS: BP 129/65
[2021-07-24] MEDS: INSULIN LANTUS 100 UNITS/ML 10 ML VIAL SUBQ SCH (06:14)
[2021-07-24] MEDS: PIPERACILLIN/TAZOBACTAM 3.375 GM in DEXTROSE 5% 50 ML IV SCH ×3 (06:15→21:00)
[2021-07-24 06:19] LABS: BASOPHILS % (AUTO) 0.4 % (0.0-2.0); EOSINOPHILS # (AUTO) 0.1 K/uL (0-0.4); HEMATOCRIT 32.7 % (36-48); HEMOGLOBIN 10.3 g/dL (12.0-16.0); LYMPHOCYTES # (AUTO) 2.6 K/uL (2.5-16.5); LYMPHOCYTES % (AUTO) 26.5 % (20.5-51.1); MEAN CORPUSCULAR HEMOGLOBIN 26 pg (27-31); MEAN CORPUSCULAR HGB CONC 32 g/dL (33-37); MEAN CORPUSCULAR VOLUME 82.1 fL (80-94); MONOCYTES # (AUTO) 0.8 K/uL (0.8-1.0); MONOCYTES % (AUTO) 7.6 % (1.7-9.3); NEUTROPHILS # (AUTO) 6.4 K/uL (1.8-7.7); NEUTROPHILS % (AUTO) 64.5 % (42.2-75.2); PLATELET COUNT (AUTO) 335 K/uL (140-450); RED BLOOD CELL COUNT(AUTO) 3.98 MIL/uL (4.20-5.40); RED CELL DISTRIBUTION WIDTH 15.4 % (11.6-13.7); WHITE BLOOD COUNT (AUTO) 9.9 K/uL (4.8-10.8)
--- NOTE | 2021-07-24 07:10 | NUR ---
RECEIVED BEDSIDE REPORT FROM MACHINE PIE MAKER NURSE FOR CONTINUITY OF CARE. PT IS ASLEEP. CHEST RISE AND FALL IS SYMMETRICAL. NO RESPIRATORY DISTRESS ON 2L O2 NC. SR ON TELE MONITOR. G TUBE IN PLACE INFUSING FEEDING GLUCERNA AT 60 ML/HR. DOMINGUEZ CATH IN PLACE DRAINING URINE. WOUND ON THE SACRAL REGION. SKIN IS WARM AND DRY. IV IS IN THE LEFT AC 20 GAUGE RUNNING NS AT 50 ML PER HOUR PER ORDER. PT IS STABLE. PLAN OF CARE DISCUSSED.
[2021-07-24 07:47] LABS: ALBUMIN 1.9 g/dL (3.4-5.0); ANION GAP 10.7 (8-16); ASPARTATE AMINOTRANSFERASE 16 U/L (15-37); CARBON DIOXIDE 33.6 mmol/L (21-32); CHLORIDE 118 mmol/L (98-107); CREATININE 0.9 mg/dL (0.6-1.3); GLUCOSE 192 mg/dL (74-106); MAGNESIUM 2.4 mg/dL (1.8-2.4); PHOSPHORUS 2.8 mg/dL (2.5-4.9); POTASSIUM 3.3 mmol/L (3.5-5.1); TOTAL BILIRUBIN 0.1 mg/dL (0.0-1.0); UREA NITROGEN, BLOOD 35 mg/dL (7-18)
[2021-07-24 08:00] VITALS: BP 112/67
[2021-07-24 08:52] LABS: SODIUM SERUM 159 mmol/L (136-145)
[2021-07-24] MEDS: NACL 0.9% 1,000 ML IV SCH (09:00)
--- NOTE | 2021-07-24 09:00 | NUR ---
NOTIFIED DR. RICHEY OF [facility]ICAL LAB NA 159. ALSO INFORMED HIM THAT THE POTASSIUM WAS 3.3 AND ASKED IF HE WANTS TO ORDER 40 MEQ KCL ELIXIR VIA G TUBE. WILL WAIT FOR RESPONSE. D5W FLUIDS INFUSING ORDERED. NS WAS NOT RESTARTED THE SODIUM WAS 159. Addendum: 07/24/21 at 0944 by Rhonda Rogers RN NOTIFIED DR. GODOY, NOT DR. RICHEY. DR. GODOY AGREED TO ORDER 40 MEQ KCL ELIXIR FOR G TUBE. WILL ADMINISTER ONCE VERIFIED.
[2021-07-24] MEDS: METOPROLOL 25 MG TAB GT SCH ×2 (09:05→21:00)
[2021-07-24] MEDS: BENZTROPINE 1 MG TAB GT SCH (09:05)
[2021-07-24] MEDS: ZINC SULF 220 MG CAP PO SCH (09:05)
[2021-07-24] MEDS: ASCORBIC ACID 500 MG TAB GT SCH ×2 (09:05→21:00)
[2021-07-24] MEDS: DIVALPROEX SPRINKLES 125 MG CAPDR GT SCH ×2 (09:06→21:00)
[2021-07-24] MEDS: GABAPENTIN 300 MG CAP GT SCH ×3 (09:06→17:02)
[2021-07-24] MEDS: FAMOTIDINE 20 MG TAB GT SCH (09:06)
[2021-07-24] MEDS: LACTOBACILLUS RHAMNOSUS GG 1 EACH CAP GT SCH ×2 (09:06→21:00)
[2021-07-24] MEDS: lisinopriL 10 MG TAB GT SCH (09:07)
[2021-07-24] MEDS: NYSTATIN/TRIAMCINOLONE CRM 15 GM TUBE TP SCH ×2 (09:07→21:00)
[2021-07-24] MEDS: CHOLECALCIFEROL 1,000 IU TAB GT SCH (09:10)
--- NOTE | 2021-07-24 09:30 | NUR ---
PT IS ASLEEP. PT NOT EASILY AWOKEN BY NOISE OR CALLING NAME. PT OPENS EYES WITH SHAKING. BREATHING IS UNLABORED ON 2L O2 NC. NO FEVER NOTED AT THIS TIME. G TUBE RESIDUAL IS LESS THAN 5 ML. DIAPER IS DRY AND INTACT. PT IS APHASIC. WILL CONTINUE TO MONITOR.
[2021-07-24] MEDS ORDERED: ALBUTEROL 0.083% 2.5 MG/3 ML NEBU INH PRN (09:50)
[2021-07-24] MEDS ORDERED: POTASSIUM CHLORIDE 20% 40 MEQ/15 ML UDC GT SCH (10:00)
--- NOTE | 2021-07-24 10:44 | NUR ---
KCL 40 MEQ ELIXIR WAS GIVEN FOR POTASSIUM LEVEL OF 3.3 ORDERED. PT IS STABLE AT THIS TIME. WILL CONTINUE TO MONITOR.
--- NOTE | 2021-07-24 11:19 | NUR ---
RECEIVED VERBAL ORDER FROM DR. VERDE, CARDIOLOGY, TO INCREASE WATER FLUSHES TO 300 Q 6HR. ALSO TO GIVE HER 500 WATER FLUSH BOLUS THROUGH G TUBE AT ONCE. WILL ADMINISTER. Addendum: 07/24/21 at 1124 by Rhonda Rogers RN DR. VERDE CHANGED ORDERED TO 200 ML FREE WATER FLUSH. HE ALSO GAVE VERBAL ORDER TO STOP LISINOPRIL.
--- NOTE | 2021-07-24 11:30 | NUR ---
FREE WATER FLUSH GIVEN ORDERED BY DR. VERDE. PT TOLERATED WELL. WILL MONITOR G TUBE RESIDUAL.
[2021-07-24 12:00] VITALS: BP 110/62
--- NOTE | 2021-07-24 12:00 | NUR ---
PT WAS TAKEN OFF 2L O2 NC AND PLACED ON RA. MONITORED PT FOR TEN MINUTES AND THE O2 SAT IS MAINTAINED AT 95%. BREATHING IS UNLABORED. PT STABLE.
--- NOTE | 2021-07-24 13:40 | NUR ---
BS READING IS 217. PER SLIDING SCALE, 4 UNITS HUMALOG INSULIN, WAS GIVEN. PT IS STABLE AT THIS TIME.
[2021-07-24] MEDS: Z-GUARD PASTE TP SCH (13:41)
[2021-07-24] MEDS: THERAHONEY GEL 42.5 GM TP SCH (13:41)
[2021-07-24] MEDS: DEXTROSE 5% 1,000 ML IV SCH (14:14)
--- NOTE | 2021-07-24 15:30 | NUR ---
PT HAD A BM. BM WAS LIQUID AND BROWN IN COLOR. IT WAS MODERATE IN AMOUNT. PT WAS CHANGED AND REPOSITIONED. PT TOLERATED MOVEMENT WELL. PT IS STABLE.
--- NOTE | 2021-07-24 15:31 | NUR ---
DC PLANNING: Addendum: 07/24/21 at 1543 by Neeru Cai CM DC PLANNING: JOE SPOKE WITH RUSS MENG (SEE FACESHEET), BIOLOGICAL SCIENTIST FROM THE [facility]. THE PATIENT HAS BEEN AT [facility] FOR WOUND CARE BUT THE [facility] WANTS THE PATIENT REFERRED TO OTHER SNFS THAT DR. GODOY GOES TO. RUSS WANTS TO SPEAK TO HER NURSE FIRST AND WILL CALL ON TUESDAY WITH SNF OPTIONS. JOE ALSO SPOKE WITH DR. GODOY WHO STATES PATIENT WILL NOT DC OVER THE WEEKEND. WILL FOLLOW FOR NEEDS. Addendum: 07/27/21 at 1514 by Neeru Cai CM DC PLANNING: JOE SPOKE WITH RUSS MENG AT THE [facility] WHO ASKED THAT THE PATIENT BE REFERRED TO [facility]. PATIENT ACCEPTED TO [facility], ROOM 23A, ID CLEARED, ORDER FROM DR GODOY TO DC IF CLEARED BY ID. JOE INFORMED DR GODOY THAT PATIENT IS NOT GOING BACK TO [facility] PER [facility], PER RUSS BRAUN WILL FOLLOW PATIENT. [facility] WILL TRY TO ARRANGE TRANSPORT FOR PATIENT, JOE WILL FOLLOW FOR NEEDS. Addendum: 07/27/21 at 1625 by Neeru Cai CM DC PLANNING: [facility] DECLINED PATIENT BECAUSE OF HER STAGE 4 SACRAL DECUBITUS. JOE SPOKE WITH THE [facility] NURSE IZABEL LARKIN ([phone]) TO NOTIFY HER OF DECLINATION. SHE STATES SHE WILL SPEAK WITH THE AUDITOR TAX AND MD REGARDING THIS AND WILL CALL JOE BACK. PATIENTS RN NOTIFIED, JOE WILL FOLLOW FOR NEEDS. Addendum: 07/27/21 at 1656 by Neeru Cai CM DC PLANNING: PATIENT NOW ACCEPTED TO ROOM 22A, UNABLE TO DC TODAY THEY NEED TO GET A LOW AIR LOSS MATTRESS. FACILITY WILL HAVE THE PATIENT PICKED UP AT 10:00 AM TOMORROW AND WILL NOTIFY CM IF PLAN CHANGES. CM WILL FOLLOW FOR NEEDS. Addendum: 07/28/21 at 1057 by Neeru Cai CM DC PLANNING: SPOKE WITH [facility], PATIENT TO BE PICKED UP FOR TRANSPORT TO [facility] BETWEEN AND TODAY. ALSO LEFT A MESSAGE FOR LISETTE AT THE [facility] ([phone]) AND UPDATED HER ON THE PLAN TO DC TO [facility] FOR CONTINUED WOUND CARE TO HER STAGE 4 SACRAL DECUBITUS. CM WILL FOLLOW FOR NEEDS.
--- NOTE | 2021-07-24 15:35 | NUR ---
ROULA, WOUND CARE NURSE, AT BEDSIDE ASSESSING PT. SACRAL WOUND WAS CLEANSED AND NEW DRESSING WAS PLACED BY WOUND CARE NURSE.
--- NOTE | 2021-07-24 15:44 | NUR ---
WOUND CARE EVALUATION NOTE: SKIN ASSESSMENT DONE WITH THIS PT ADMITTED WITH ELEVATED BLOOD SUGAR AND PRESSURE INJURY. PAST MEDICAL HISTORY: DIABETES MELLITUS, HYPERTENSION, HYPERLIPIDEMIA, DEMENTIA, CHRONIC KIDNEY DISEASE STAGE 3, GERD, ENCEPHALOPATHY, SACRAL DECUBITUS ULCER STAGE 4, CEREBRAL PALSY, DYSPHAGIA, STATUS POST PEG, DYSPEPSIA. 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 NO HAIR GROWTH, NO EDEMA. DORSAL PEDAL PULSES PRESENT AND NORMAL. CAPILLARY REFILLED <2 SEC. X 10 TOES. INCONTINENT OF BOWEL AND BLADDER INTEGUMENTARY: -LIPS AND ORAL MUCOSA DRY -GT VANESSA-STOMA SKIN DRY AND INTACT -INCONTINENT ASSOCIATE DERMATITIS (IAD) TO: B/L GROINS, INNER THIGH SKIN RED INTACT -PRESSURE ULCER INJURY UN-STAGEABLE, SACROCOCCYX 4X2X0.8CM, UNDERMINING AROUND THE CLOCK WITH DEEPEST TO 6 0CLOCK DIRECTIONS 4CM DEEP, WOUND BED 100% YELLOW/BROWN SOFT SLOUGH TISSUE, MOIST WITH NO ODOR. VANESSA-WOUND SKIN MOIST SURROUNDING DTI SKIN FURTHER DAMAGE INDICATED -BILATERAL HEEL BLANCHABLE REDNESS RECOMMENDATIONS: -APPLY THIN LAYER OF Z GUARD TO R/L GROINS EXTENDED TO INNER THIGHS BID AND PRN IF SOILING - CLEANSE SACRALCOCCYX WITH WOUND CLEANSING SOLUTION AND PACK WITH THERAHONEY GEL COVER WITH DRY DRESSING QD AND PRN IF SOILING -APPLY HEEL PROTECTORS TO BOTH HEELS AT ALL TIMES -OFFLOAD BILATERAL HEELS BY PLACING PILLOWS UNDER CALVES UNLESS OTHERWISE CONTRAINDICATED -PRESSURE REDISTRIBUTION SURFACE THERAPY -TURN AND REPOSITION Q2H, OFFLOAD SACRALCOCCYX AND BUTTOCKS BY TURNING RIGHT AND LEFT -CONTINUE TO FOLLOW RD RECOMMENDATIONS PLEASE CONTACT WOUND CARE NURSE FOR ANY QUESTION AND CHANGE OF WOUND CONDITION
[2021-07-24 16:00] VITALS: BP 107/53
--- NOTE | 2021-07-24 17:07 | NUR ---
PT'S BS READING IS 201. PT WAS GIVEN 4 UNITS HUMALOG PER SLIDING SCALE.
--- NOTE | 2021-07-24 17:56 | NUR ---
PT WAS CHANGED AND REPOSITIONED. PT TOLERATED CHANGING WELL. G TUBE FEEDING IS INFUSING ORDERED. NO DISTRESS NOTED ON RA. IV IS PATENT AND INFUSING ORDERED. PT IS STABLE.
--- NOTE | 2021-07-24 19:25 | NUR ---
ENDORSED PT TO FIELD IDENTIFICATION SPECIALIST NURSE FOR CONTINUITY OF CARE. PT IS STABLE AT THIS TIME. PLAN OF CARE DISCUSSED.
[2021-07-24 20:00] VITALS: BP 128/69
[2021-07-24] MEDS: FENOFIBRATE 48 MG TAB PO SCH (21:00)
[2021-07-25] VITALS: BP 130/70
[2021-07-25] MEDS: Z-GUARD PASTE TP SCH ×2 (01:00→16:07)
[2021-07-25] MEDS: NACL 0.9% 1,000 ML IV SCH ×2 (03:00→21:07)
[2021-07-25 04:00] VITALS: BP 135/75
[2021-07-25] MEDS: LORazepam 0.5 MG TAB GT PRN (05:05)
[2021-07-25] MEDS: PIPERACILLIN/TAZOBACTAM 3.375 GM in DEXTROSE 5% 50 ML IV SCH ×3 (05:07→21:26)
--- NOTE | 2021-07-25 06:09 | NUR ---
PT WAS CIVEN A BEDBATH LINEN WAS CHANGED DRESSING ON SACRAL WAS CHANGE , POSITION WAS CHANGED .
[2021-07-25 07:09] LABS: BASOPHILS # (AUTO) 0.1 K/uL (0.00-0.22); BASOPHILS % (AUTO) 0.4 % (0.0-2.0); EOSINOPHILS # (AUTO) 0.3 K/uL (0-0.4); EOSINOPHILS % (AUTO) 2.2 % (0.0-4.0); HEMATOCRIT 31.6 % (36-48); HEMOGLOBIN 9.9 g/dL (12.0-16.0); LYMPHOCYTES # (AUTO) 3.4 K/uL (2.5-16.5); LYMPHOCYTES % (AUTO) 23.2 % (20.5-51.1); MEAN CORPUSCULAR HEMOGLOBIN 26 pg (27-31); MEAN CORPUSCULAR HGB CONC 31 g/dL (33-37); MEAN CORPUSCULAR VOLUME 81.6 fL (80-94); MONOCYTES # (AUTO) 1.1 K/uL (0.8-1.0); MONOCYTES % (AUTO) 7.7 % (1.7-9.3); NEUTROPHILS # (AUTO) 9.7 K/uL (1.8-7.7); NEUTROPHILS % (AUTO) 66.5 % (42.2-75.2); PLATELET COUNT (AUTO) 275 K/uL (140-450); RED BLOOD CELL COUNT(AUTO) 3.88 MIL/uL (4.20-5.40); RED CELL DISTRIBUTION WIDTH 15.4 % (11.6-13.7); WHITE BLOOD COUNT (AUTO) 14.6 K/uL (4.8-10.8)
[2021-07-25 07:28] LABS: ANION GAP 11.6 (8-16); CARBON DIOXIDE 28.7 mmol/L (21-32); CHLORIDE 110 mmol/L (98-107); CREATININE 0.9 mg/dL (0.6-1.3); GLUCOSE 224 mg/dL (74-106); POTASSIUM 4.3 mmol/L (3.5-5.1); SODIUM SERUM 146 mmol/L (136-145); UREA NITROGEN, BLOOD 27 mg/dL (7-18)
[2021-07-25] MEDS: INSULIN LISPRO SLIDING SCALE 100 UNITS/ML VIAL SUBQ PRN ×2 (07:35→23:42)
[2021-07-25] MEDS: guaiFENesin 20 MG/ML UDC PO PRN (07:54)
[2021-07-25] MEDS: CHOLECALCIFEROL 1,000 IU TAB GT SCH (07:55)
[2021-07-25] MEDS: ZINC SULF 220 MG CAP PO SCH (07:55)
[2021-07-25] MEDS: DIVALPROEX SPRINKLES 125 MG CAPDR GT SCH ×2 (07:55→20:33)
[2021-07-25] MEDS: FAMOTIDINE 20 MG TAB GT SCH (07:56)
[2021-07-25] MEDS: METOPROLOL 25 MG TAB GT SCH ×2 (07:56→21:09)
[2021-07-25] MEDS: LACTOBACILLUS RHAMNOSUS GG 1 EACH CAP GT SCH ×2 (07:57→20:34)
[2021-07-25] MEDS: GABAPENTIN 300 MG CAP GT SCH ×3 (07:57→18:41)
[2021-07-25] MEDS: BENZTROPINE 1 MG TAB GT SCH (07:58)
[2021-07-25] MEDS: ASCORBIC ACID 500 MG TAB GT SCH ×2 (07:58→20:33)
[2021-07-25 08:00] VITALS: BP 107/53
[2021-07-25] MEDS: INSULIN LANTUS 100 UNITS/ML 10 ML VIAL SUBQ SCH (08:03)
[2021-07-25] MEDS: BLOOD GLUCOSE MONITORING 1 DEV DEV FS SCH ×5 (08:04→23:39)
[2021-07-25] MEDS: DEXTROSE 5% 1,000 ML IV SCH (08:04)
--- NOTE | 2021-07-25 08:39 | NUR ---
Patient's stomach residual at 450 Ml. Notified Physician and was given an order to hold feeding and order KUB. Electronics Mechanic Apprentice notified and to follow up after kub for appropriate recommendations for high residuals.
[2021-07-25 10:44] LABS: MAGNESIUM 2.2 mg/dL (1.8-2.4); PHOSPHORUS 2.2 mg/dL (2.5-4.9)
[2021-07-25 12:00] VITALS: BP 114/68
[2021-07-25] MEDS: FLUTICASONE NASAL 50 MCG/ACTUATION 16 GM BTL NS SCH ×3 (12:07→20:44)
[2021-07-25 16:00] VITALS: BP 165/56
--- NOTE | 2021-07-25 16:05 | NUR ---
07/25/21 RD FOLLOW UP COMPLETED PLEASE REFER TO NUTRITION PROGRESS NOTE UNDER CARE ACTIVITY FOR ESTIMATED NUTRITION NEEDS. RD RECOMMENDATIONS: 1. CONTINUE GLUCERNA 1.2 @ 60 ML/HR. -THIS WILL PROVIDE 1728 KCAL/DAY AND 86 GM OF PROTEIN/DAY. 2. CONTINUE 200 ML FREE WATER FLUSH Q6H. 3. IF PT IS NOT ABLE TO TOLERATE CURRENT TUBE FEEDING FORMULA, CONSIDER SWITCHING VITAL AF 1.2 TO 60 ML/HR, TO PROVIDE 1728 KCAL AND 108 GM OF PROTEIN (ADEQUATE TO MEET NUTRITIONAL NEEDS). 4. RECOMMEND ADDING REGLAN TO PROMOTE GI MOTILITY. 5. CONTINUE KRISTEL BID, VITAMIN C, AND ZINC SULFATE TO PROMOTE WOUND HEALING 6. RD TO FOLLOW-UP 2-3 DAYS, HIGH RISK YUNI GIBSON, RD
[2021-07-25] MEDS: THERAHONEY GEL 42.5 GM TP SCH (16:07)
[2021-07-25] MEDS: NYSTATIN/TRIAMCINOLONE CRM 15 GM TUBE TP SCH ×2 (16:08→20:36)
--- NOTE | 2021-07-25 19:15 | NUR ---
RECD. RECD REPORT FROM DAVID JENKINS RN. PATIENT RESTING IN BED, SLEEPING COMFORTABLY, OPENS EYES WHEN WAKEN UP THEN GO BACK TO SLEEP AGAIN, APHASIC. RESPIRATION EVEN AND UNLABORED. ON ROOM AIR, 02 SATURATION AT 96%. IV OF NS INFUSING AT 70 ML/HR, LEFT WRIST G24. ON GT FEEDING OF GLUCERNA 1.2 AT 60 ML/HR. BILATERAL UPPER AND LOWER EXTREMITIES WITH CONTRACTURES. F/C PATENT DRAINING CLEAR YELLOW URINE. ON WOUND CARE BED. NO APPEARANCE OF PAIN OR DISCOMFORT NOTED, FLACC -0.
--- NOTE | 2021-07-25 20:00 | NUR ---
Patient's Plan of Care was discussed and reviewed with ANGEL: ANGEL BLACK
[2021-07-25] MEDS: FENOFIBRATE 48 MG TAB PO SCH (20:34)
[2021-07-25] MEDS ORDERED: POTASSIUM PHOSPHATE 15 MM in NACL 0.9% 250 ML IV ONE (21:05)
--- NOTE | 2021-07-25 21:26 | NUR ---
SCHEDULE ZOSYN GIVEN WITH EDUCATION. PATIENT TOLERATED WELL. NO SIGN OF DISTRESS NOTED. PRECAUTION IN PLACE. CALL LIGHT WITHIN REACH. WILL CONTINUE TO MONITOR.
--- NOTE | 2021-07-25 23:00 | NUR ---
INFORMED DR. ALBERTO GODOY, NURSE WASHER MEAT CANNOT OVERRIDE IV POTASSIUM PHOSPATE. STATED OK TO BE GIVEN TOMORROW. INQUIRED WHICH IV FLUIDS THE PATIENT SHOULD HAVE SINCE THERE ARE TWO ORDERS, NS AND D5. NS CAN BE JUST TKO AND D5 DISCONTINUED, PATIENT IS ON GT FEEDING.
[2021-07-26] VITALS: BP 122/51
[2021-07-26] MEDS: Z-GUARD PASTE TP SCH ×2 (01:00→13:13)
--- NOTE | 2021-07-26 01:00 | NUR ---
HAD LOOSE BM, CLEANSED AND MADE COMFORTABLE IN BED WITH PILLOWS ON SIDES.
[2021-07-26] MEDS: PIPERACILLIN/TAZOBACTAM 3.375 GM in DEXTROSE 5% 50 ML IV SCH ×3 (04:36→21:53)
--- NOTE | 2021-07-26 05:00 | NUR ---
HAD LOOSE BM, CLEANSED AND MADE COMFORTABLE IN BED WITH PILLOWS ON SIDES.
[2021-07-26] MEDS: BLOOD GLUCOSE MONITORING 1 DEV DEV FS SCH ×3 (06:02→17:47)
[2021-07-26] MEDS: INSULIN LISPRO SLIDING SCALE 100 UNITS/ML VIAL SUBQ PRN ×2 (06:04→12:55)
[2021-07-26 06:35] LABS: BASOPHILS % (AUTO) 0.2 % (0.0-2.0); EOSINOPHILS # (AUTO) 0.3 K/uL (0-0.4); EOSINOPHILS % (AUTO) 3.8 % (0.0-4.0); HEMATOCRIT 28.5 % (36-48); LYMPHOCYTES # (AUTO) 2.1 K/uL (2.5-16.5); LYMPHOCYTES % (AUTO) 24.8 % (20.5-51.1); MEAN CORPUSCULAR HEMOGLOBIN 26 pg (27-31); MEAN CORPUSCULAR HGB CONC 32 g/dL (33-37); MEAN CORPUSCULAR VOLUME 81.2 fL (80-94); MONOCYTES # (AUTO) 0.4 K/uL (0.8-1.0); MONOCYTES % (AUTO) 5.2 % (1.7-9.3); NEUTROPHILS # (AUTO) 5.6 K/uL (1.8-7.7); PLATELET COUNT (AUTO) 272 K/uL (140-450); RED BLOOD CELL COUNT(AUTO) 3.51 MIL/uL (4.20-5.40); RED CELL DISTRIBUTION WIDTH 14.9 % (11.6-13.7); WHITE BLOOD COUNT (AUTO) 8.6 K/uL (4.8-10.8)
[2021-07-26] MEDS: INSULIN LANTUS 100 UNITS/ML 10 ML VIAL SUBQ SCH (06:46)
[2021-07-26 07:11] LABS: ANION GAP 9.1 (8-16); CARBON DIOXIDE 27.8 mmol/L (21-32); CHLORIDE 111 mmol/L (98-107); CREATININE 0.8 mg/dL (0.6-1.3); GLUCOSE 263 mg/dL (74-106); POTASSIUM 3.9 mmol/L (3.5-5.1); SODIUM SERUM 144 mmol/L (136-145); UREA NITROGEN, BLOOD 18 mg/dL (7-18)
--- NOTE | 2021-07-26 07:29 | NUR ---
CONDITION REMAIN STABLE. ENDORSED TO AM SHIFT NURSE FR CONTINUITY OF CARE.
--- NOTE | 2021-07-26 07:30 | NUR ---
PATIENT RECEIVED FROM BUSINESS MACHINES TEACHER RN. PT RESTING IN BED EYES CLOSED. BREATHING IS UNLABORED. IN NO S/SX OF DISTRESS CALL LIGHT WITHIN REACH ALL SAFETY MEASURES IN PLACE.
[2021-07-26 08:00] VITALS: BP 128/49
[2021-07-26] MEDS ORDERED: POTASSIUM PHOSPHATE 15 MM in NACL 0.9% 250 ML IV ONE (08:00)
[2021-07-26] MEDS: GABAPENTIN 300 MG CAP GT SCH ×3 (08:56→17:45)
[2021-07-26] MEDS: BENZTROPINE 1 MG TAB GT SCH (08:57)
[2021-07-26] MEDS: ASCORBIC ACID 500 MG TAB GT SCH ×2 (08:57→21:33)
[2021-07-26] MEDS: FAMOTIDINE 20 MG TAB GT SCH (08:57)
[2021-07-26] MEDS: CHOLECALCIFEROL 1,000 IU TAB GT SCH (08:57)
[2021-07-26] MEDS: ZINC SULF 220 MG CAP PO SCH (08:58)
[2021-07-26] MEDS: DIVALPROEX SPRINKLES 125 MG CAPDR GT SCH ×2 (08:58→21:33)
--- NOTE | 2021-07-26 09:46 | NUR ---
MEDICATIONS GIVEN PER MD ORDER. PT EDUCATED REINFORCEMENT NEEDED. PT UNABLE TO VERBALIZE UNDERSTANDING. NO S/SX OF DISTRESS AT THIS TIME. ALL SAFETY MEASURES IN PLACE. PT EDUCATED TO CALL FOR ASSISTANCE WHEN GETTING OUT OF BED
[2021-07-26] MEDS: FLUTICASONE NASAL 50 MCG/ACTUATION 16 GM BTL NS SCH ×2 (09:55→21:35)
[2021-07-26] MEDS: METOPROLOL 25 MG TAB GT SCH ×2 (09:55→21:39)
[2021-07-26] MEDS: LACTOBACILLUS RHAMNOSUS GG 1 EACH CAP GT SCH ×2 (09:55→21:34)
[2021-07-26] MEDS: NYSTATIN/TRIAMCINOLONE CRM 15 GM TUBE TP SCH ×2 (09:55→21:35)
--- NOTE | 2021-07-26 11:30 | NUR ---
BG 174 PRN MEDICATION GIVEN PER MD ORDER. PT EDUCATED. PT UNABLE TO VERBALIZE UNDERSTANDING ALL SAFETY MEASURES ARE IN PLACE.E
--- NOTE | 2021-07-26 13:00 | NUR ---
MEDICATIONS GIVEN PER MD ORDER. PT EDUCATED AND VERBALIZED UNDERSTANDING . NO S/SX OF DISTRESS AT THIS TIME. ALL SAFETY MEASURES IN PLACE Addendum: 07/26/21 at 1919 by Niecy Oneal RN RN PT UNABLE TO VERBALIZE UNDERSTANDING DUE TO CONDITION
[2021-07-26] MEDS: THERAHONEY GEL 42.5 GM TP SCH (13:14)
[2021-07-26 16:00] VITALS: BP 89/50
[2021-07-26] MEDS ORDERED: LACT10CA GT (16:04)
--- NOTE | 2021-07-26 16:50 | NUR ---
PT CHANGED REPOSITIONED. PT TOLERATED WELL.
--- NOTE | 2021-07-26 17:00 | NUR ---
MEDICATIONS GIVEN PER MD ORDER. PT EDUCATED AND UNABLE TO VERBALIZE UNDERSTANDING . NO S/SX OF DISTRESS AT THIS TIME. ALL SAFETY MEASURES IN PLACE
--- NOTE | 2021-07-26 18:50 | NUR ---
PT CHANGED AND REPOSITIONED TOLERATED WELL. NO S/SX OF DISTRESS AT THIS TIME
--- NOTE | 2021-07-26 19:20 | NUR ---
PT ENDORSED TO SENIOR NET PROGRAMMER FOR CONTINUITY OF CARE. PT IN STABLE CONDITION
--- NOTE | 2021-07-26 19:21 | NUR ---
Patient's Plan of Care was discussed and reviewed with ANGEL: WAYNE
--- NOTE | 2021-07-26 19:21 | NUR ---
RECD. RESTING IN BED, AWAKE, APHASIC. RESPIRATION EVEN AND UNLABORED. IV OF NS INFUSING AT TKO LEFT WRIST G24. GT FEEDING OF GLUCERNA INFUSING AT 60 ML/HR. RESIDUAL -15 ML, TOLERATING GT FEEDING WELL. BILATERAL CONTRACTURES OF UPPER AND LOWER EXTREMITIES. WOUND IN THE COCCYX AREA COVERED WITH DRESSING DRY AND INTACT. SAFETY MEASURES ENFORCED. NO APPEARANCE OF PAIN OR DISCOMFORT NOTED, FLACC - 0.
--- NOTE | 2021-07-26 21:00 | NUR ---
DR. GAMEZ CAME AND CHECKED PATIENT, ORDER DISCHARGE FOR THE PATIENT.
[2021-07-26] MEDS: FENOFIBRATE 48 MG TAB PO SCH (21:34)
--- NOTE | 2021-07-26 23:00 | NUR ---
HAD A LARGE LOOSE BM, YELLOW COLOR. CLEANSED AND REPOSITIONED WITH PILLOWS FOR COMFORT.`
[2021-07-27] VITALS: BP 131/57
[2021-07-27] MEDS: BLOOD GLUCOSE MONITORING 1 DEV DEV FS SCH ×4 (00:42→18:37)
[2021-07-27] MEDS: INSULIN LISPRO SLIDING SCALE 100 UNITS/ML VIAL SUBQ PRN ×4 (00:43→18:39)
[2021-07-27] MEDS: Z-GUARD PASTE TP SCH ×2 (01:02→13:00)
[2021-07-27] MEDS: LORazepam 0.5 MG TAB GT PRN ×2 (01:10→12:35)
[2021-07-27] MEDS: guaiFENesin 20 MG/ML UDC PO PRN (01:10)
--- NOTE | 2021-07-27 01:10 | NUR ---
SHOWING SIGNS OF ANXIETY AGITATION. WITH OCCASIONAL COUGHING. MEDICATED WITH ATIVAN PO PER MD ORDER AND VALENTIN.
--- NOTE | 2021-07-27 02:10 | NUR ---
NO ANXIETY, NO COUGHING NOTED, SLEEPING COMFORTABLY IN BED.
--- NOTE | 2021-07-27 04:30 | NUR ---
HAD A LARGE LOOSE BM. CLEANSED AND MADE COMFORTABLE IN BED.
[2021-07-27] MEDS: PIPERACILLIN/TAZOBACTAM 3.375 GM in DEXTROSE 5% 50 ML IV SCH ×3 (05:33→20:56)
[2021-07-27 06:32] LABS: BASOPHILS % (AUTO) 0.3 % (0.0-2.0); EOSINOPHILS # (AUTO) 0.4 K/uL (0-0.4); EOSINOPHILS % (AUTO) 4.3 % (0.0-4.0); HEMATOCRIT 32.5 % (36-48); HEMOGLOBIN 10.5 g/dL (12.0-16.0); LYMPHOCYTES # (AUTO) 2.6 K/uL (2.5-16.5); LYMPHOCYTES % (AUTO) 26.8 % (20.5-51.1); MEAN CORPUSCULAR HEMOGLOBIN 26 pg (27-31); MEAN CORPUSCULAR HGB CONC 32 g/dL (33-37); MEAN CORPUSCULAR VOLUME 80.9 fL (80-94); MONOCYTES # (AUTO) 0.6 K/uL (0.8-1.0); MONOCYTES % (AUTO) 6.5 % (1.7-9.3); NEUTROPHILS # (AUTO) 6.1 K/uL (1.8-7.7); NEUTROPHILS % (AUTO) 62.1 % (42.2-75.2); PLATELET COUNT (AUTO) 353 K/uL (140-450); RED BLOOD CELL COUNT(AUTO) 4.02 MIL/uL (4.20-5.40); RED CELL DISTRIBUTION WIDTH 15.4 % (11.6-13.7); WHITE BLOOD COUNT (AUTO) 9.9 K/uL (4.8-10.8)
[2021-07-27] MEDS: INSULIN LANTUS 100 UNITS/ML 10 ML VIAL SUBQ SCH (07:00)
[2021-07-27 07:03] LABS: ANION GAP 7.9 (8-16); CHLORIDE 110 mmol/L (98-107); CREATININE 0.8 mg/dL (0.6-1.3); GLUCOSE 155 mg/dL (74-106); POTASSIUM 3.9 mmol/L (3.5-5.1); SODIUM SERUM 145 mmol/L (136-145); UREA NITROGEN, BLOOD 15 mg/dL (7-18)
[2021-07-27 07:09] LABS: ALBUMIN 1.8 g/dL (3.4-5.0); ASPARTATE AMINOTRANSFERASE 13 U/L (15-37); MAGNESIUM 1.9 mg/dL (1.8-2.4); PHOSPHORUS 2.9 mg/dL (2.5-4.9); TOTAL BILIRUBIN 0.2 mg/dL (0.0-1.0)
--- NOTE | 2021-07-27 07:40 | NUR ---
CONDITION REMAIN STABLE ENDORSED TO AM SHIFT NURSE FOR CONTINUITY OF CARE.
[2021-07-27] MEDS: DIVALPROEX SPRINKLES 125 MG CAPDR GT SCH ×2 (08:58→20:56)
[2021-07-27] MEDS: ASCORBIC ACID 500 MG TAB GT SCH ×2 (08:59→20:56)
[2021-07-27] MEDS: CHOLECALCIFEROL 1,000 IU TAB GT SCH (08:59)
[2021-07-27] MEDS: FAMOTIDINE 20 MG TAB GT SCH (08:59)
[2021-07-27] MEDS: LACTOBACILLUS RHAMNOSUS GG 1 EACH CAP GT SCH ×2 (09:00→20:55)
[2021-07-27] MEDS: GABAPENTIN 300 MG CAP GT SCH ×3 (09:00→17:00)
[2021-07-27] MEDS: METOPROLOL 25 MG TAB GT SCH ×2 (09:00→20:56)
[2021-07-27] MEDS: BENZTROPINE 1 MG TAB GT SCH (09:01)
[2021-07-27] MEDS: NYSTATIN/TRIAMCINOLONE CRM 15 GM TUBE TP SCH (09:02)
[2021-07-27] MEDS: ZINC SULF 220 MG CAP PO SCH (09:02)
[2021-07-27] MEDS: FLUTICASONE NASAL 50 MCG/ACTUATION 16 GM BTL NS SCH ×2 (09:03→21:00)
[2021-07-27] MEDS: THERAHONEY GEL 42.5 GM TP SCH (13:00)
[2021-07-27 14:38] VITALS: BP 141/69
[2021-07-27] MEDS ORDERED: METR500T1 PO (14:58)
[2021-07-27] MEDS ORDERED: LEVO500T98 PO (14:58)
--- NOTE | 2021-07-27 19:20 | NUR ---
RECEIVED BEDSIDE REPORT FROM AM NURSE. PATIENT IN BED SLEEPING. NO S/S OF RESPIRATORY DISTRESS. IVF NS INFUSING AT 10 ML. G-TUBE FEEDING RUNNING AT 60ML TOLERATING WELL. ALL SAFETY PRECAUTIONS ARE IN PLACE. WILL CONTINUE TO MONITOR.
[2021-07-27] MEDS: FENOFIBRATE 48 MG TAB PO SCH (20:55)
--- NOTE | 2021-07-27 21:16 | NUR ---
ADMINISTERED MEDICATIONS PER MD ORDERED.
[2021-07-28] VITALS: BP 157/68
[2021-07-28] MEDS: BLOOD GLUCOSE MONITORING 1 DEV DEV FS SCH ×2 (00:25→06:50)
[2021-07-28] MEDS: INSULIN LISPRO SLIDING SCALE 100 UNITS/ML VIAL SUBQ PRN (00:27)
[2021-07-28] MEDS: Z-GUARD PASTE TP SCH (01:00)
[2021-07-28] MEDS: PIPERACILLIN/TAZOBACTAM 3.375 GM in DEXTROSE 5% 50 ML IV SCH (05:18)
[2021-07-28] MEDS: INSULIN LANTUS 100 UNITS/ML 10 ML VIAL SUBQ SCH (07:07)
--- NOTE | 2021-07-28 07:13 | NUR ---
ENDORSED TO AM NURSE FOR CONTINUITY OF CARE. PT IS STABLE.
--- NOTE | 2021-07-28 07:13 | NUR ---
RECEIVED CHANGE OF SHIFT REPORT FROM NIGHT NURSE AT BEDSIDE FOR CONTINUITY OF CARE. REVIEWED AND WILL CONTINUE WITH POC. PT ASLEEP DURING REPORT. PT IS STABLE. WHEN AWAKE PT IS AA&OX1. ON TRACH TO VENT BREATHING UNLABORED AND NORMAL FIO2:21, PEEP: 5, VT: 450, AND RT: 18. DOMINGUEZ IN PLACE AND DRAINING. PT HAS LAC 20G IV PATENT AND RUNNING FLUIDS PER MD ORDER. PT IS ON GT FEED GLUCERNA 1.2 RUNNING PER MD ORDER. SKIN IS WARM, DRY , AND INTACT EXCEPT SACRAL WOUND WITH DRESSING IN PLACE, BILATERAL HEEL DTI WITH HEEL PROTECTORS, R-NECK WOUND OPEN TO AIR, AND BILATERAL EAR WOUNDS OPEN TO AIR. WILL CONTINUE MONITORING. Addendum: 07/28/21 at 0737 by Skylar Carney RN RN DISREGARD, WRONG PT.
--- NOTE | 2021-07-28 07:35 | NUR ---
RECEIVED CHANGE OF SHIFT REPORT FROM NIGHT NURSE AT BEDSIDE FOR CONTINUITY OF CARE. REVIEWED AND WILL CONTINUE WITH POC. PT ASLEEP DURING REPORT. PT IS STABLE. PT IS APHASIC. ON RA BREATHING UNLABORED AND NORMAL. PT HAS L-HAND 24G IV PATENT AND TKO. PT IS ON GT FEED GLUCERNA 1.2 RUNNING PER MD ORDER. SKIN IS WARM, DRY , AND INTACT EXCEPT COCCYX WOUND WITH DRESSING INTACT. RECEIVED REPORT THAT PT WILL BE RETURNING TO SNF TODAY AT 10 AM. WILL CONTINUE MONITORING.
--- NOTE | 2021-07-28 09:30 | NUR ---
PT CONDITION IS STABLE. DOES NOT APPEAR TO BE IN PAIN IR DISTRESS.
[2021-07-28] MEDS: DIVALPROEX SPRINKLES 125 MG CAPDR GT SCH (10:01)
[2021-07-28] MEDS: ASCORBIC ACID 500 MG TAB GT SCH (10:01)
[2021-07-28] MEDS: BENZTROPINE 1 MG TAB GT SCH (10:01)
[2021-07-28] MEDS: ZINC SULF 220 MG CAP PO SCH (10:02)
[2021-07-28] MEDS: LACTOBACILLUS RHAMNOSUS GG 1 EACH CAP GT SCH (10:02)
[2021-07-28] MEDS: FAMOTIDINE 20 MG TAB GT SCH (10:02)
[2021-07-28] MEDS: GABAPENTIN 300 MG CAP GT SCH (10:03)
[2021-07-28] MEDS: METOPROLOL 25 MG TAB GT SCH (10:03)
[2021-07-28] MEDS: CHOLECALCIFEROL 1,000 IU TAB GT SCH (10:03)
[2021-07-28] MEDS: FLUTICASONE NASAL 50 MCG/ACTUATION 16 GM BTL NS SCH (10:05)
--- NOTE | 2021-07-28 11:00 | NUR ---
PT WAS PICKED UP BY TRANSPORT TO BE TAKEN TO [facility]. PT CONDITION IS STABLE. IV WAS DISCONTINUED AND FEEDING WAS DISCONNECTED, ID BAND TAKEN OFF.
== END 2021-07-28 11:00 | DRG 871 ==
LOC: MED 10:07 → MTU 19:37
PROVIDERS: ADMIT Preventive Medicine Preventive Medicine/Occupational Environmental Medicine; ATTEND Preventive Medicine Preventive Medicine/Occupational Environmental Medicine
DX: A41.9 Sepsis, unspecified organism (principal); L89.154 Pressure ulcer of sacral region, stage 4; E43 Unspecified severe protein-calorie malnutrition; J96.01 Acute respiratory failure with hypoxia; N17.0 Acute kidney failure with tubular necrosis; E87.0 Hyperosmolality and hypernatremia; E87.2 Acidosis; E87.1 Hypo-osmolality and hyponatremia; K94.23 Gastrostomy malfunction; N39.0 Urinary tract infection, site not specified; G93.40 Encephalopathy, unspecified; E11.65 Type 2 diabetes mellitus with hyperglycemia; N18.30 Chronic kidney disease, stage 3 unspecified; E78.5 Hyperlipidemia, unspecified; F03.90 Unspecified dementia, unspecified severity, without behavioral disturbance, psychotic disturbance, mood disturbance, and anxiety; K21.9 Gastro-esophageal reflux disease without esophagitis; E88.09 Other disorders of plasma-protein metabolism, not elsewhere classified; R13.10 Dysphagia, unspecified; E11.21 Type 2 diabetes mellitus with diabetic nephropathy; F79 Unspecified intellectual disabilities; G47.30 Sleep apnea, unspecified; Y83.8 Other surgical procedures as the cause of abnormal reaction of the patient, or of later complication, without mention of misadventure at the time of the procedure; Y82.8 Other medical devices associated with adverse incidents; E83.52 Hypercalcemia; M19.90 Unspecified osteoarthritis, unspecified site; G80.9 Cerebral palsy, unspecified; Z20.822 Contact with and (suspected) exposure to COVID-19; D64.9 Anemia, unspecified; E83.39 Other disorders of phosphorus metabolism; E83.41 Hypermagnesemia; E87.6 Hypokalemia; J45.909 Unspecified asthma, uncomplicated; I12.9 Hypertensive chronic kidney disease with stage 1 through stage 4 chronic kidney disease, or unspecified chronic kidney disease; E11.22 Type 2 diabetes mellitus with diabetic chronic kidney disease; N18.31 Chronic kidney disease, stage 3a; E11.40 Type 2 diabetes mellitus with diabetic neuropathy, unspecified; Z68.24 Body mass index [BMI] 24.0-24.9, adult
CPT/HCPCS: 36415; 71045; 74018; 80048; 80053; 81001; 82550; 82553; 82948; 83036; 83605; 83735; 83880; 84100; 84484; 85025; 85610; 85651; 85730; 86140; 87040; 87081; 93005; 96360; 96361; 99291; J1815; J2543; J7030; J7060; Q0092; U0003